=== PATIENT | female | born 1995 | race Caucasian/White ===

== ENCOUNTER 2023-08-25 19:54 | Inpatient (IN) | payer MEDICARE, SELFPAY ==
[2023-08-25 14:48] VITALS: BP 120/80
--- NOTE | 2023-08-25 16:07 | ED.GENMED ---
History of Present Illness
<EMILY Bates - Last Filed: 08/25/23 23:49>
General
Chief Complaint: Musculo-Skeletal Complaint
Source: patient
Exam Limitations: none
Time Seen by Provider: 08/25/23 15:07
Nursing documentation reviewed up to this point in time: agreed with
Travel History
Have you had any contact with someone who has COVID-19?: No
Do you have any symptoms of coronavirus? Fever > 100 degrees, chills, cough, shortness of breath, sore throat, loss of taste or smell, muscle aches, or headache?: No
History of Present Illness
History of Present Illness:
28-year-old female brought to the ER by mom for evaluation. Two days ago patient started to complain of pain to left groin area and had some discomfort yesterday but today mom noticed significant swelling to her left lower leg and now reports the
swelling is throughout the entire leg. Patient still complains of pain. She denies any fever chills or illness. Denies any injury. No prior DVT PE. She is on and has been on oral contraceptives for 10 years but does not smoke.
Past History
<EMILY Bates - Last Filed: 08/25/23 23:49>
Past History
ED Past Medical History: GERD, Hypothyroidism, Other (Down syndrome) and Other (Seasonal allergies)
ED Past Surgical History: Cholecystectomy and Other (Tear duct)
Social History
Tobacco: Non-smoker
Alcohol: None
Drug: None
Personal: Single
Living: with family
Employment: Student
Family History
Family History: Other (Noncontributory)
Review of Systems
<EMILY Bates - Last Filed: 08/25/23 23:49>
Review of Systems
Allergies reviewed?: Yes
All Other Systems: ROS reviewed and negative except as documented in HPI and ROS
Constitutional: Reports no symptoms; Denies fever, fatigue or chills
Respiratory: Reports no symptoms; Denies trouble breathing
Musculoskeletal: Reports other ( left leg swelling pain )
Skin: Reports no symptoms
Neurological: Reports no symptoms
Hematologic/Lymphatic: Reports no symptoms
Psychiatric: Reports no symptoms
Phy Exam
<EMILY Bates - Last Filed: 08/25/23 23:49>
General Physical Exam
General Presentation: no apparent distress
General age: appears stated age
General Skin: warm and dry
General Habitus: normal
General Mental: alert
General Hydration: appears well hydrated
Cardiovascular Exam
Cardiovascular Exam: regular rate/rhythm, no murmur and normal peripheral pulses
Pulmonary Exam
Pulmonary Exam: lungs clear and no respiratory distress
Neurological Exam
Neurological Exam: alert and oriented x3
Bethanie Coma Scale
Eye Opening: Spontaneous
Verbal Response: Oriented
Motor Response: Obeys Commands
GCS Total Score: 15
Musculoskeletal Exam
Musculoskeletal Exam: other (Left leg with obvious significant swelling from thigh to foot mild erythema strong pulses)
Skin Exam
Skin Exam: normal color and cyanosis
Psychiatric Exam
Psychiatric Exam: normal mood/affect
Course
<EMILY Bates - Last Filed: 08/25/23 23:49>
Orders/Labs/Results
Orders:
Orders
08/25/23 15:57
IV Insert/Care/Rem.- Treatment PRN
Venous Doppler Lwr Ext Left [US Periph Venous LOWER Ext LT] Urgent
Comment:
Reason For Exam: swelling
08/25/23 16:37
Lactic Acid Urgent
08/25/23 16:38
Basic Metabolic Panel Urgent
Complete Blood Count/With Diff Urgent
Blood Culture Routine
VILMA Source: Blood/Venous
Specimen Description:
08/25/23 18:46
Heparin 7,300 units IV NOW STA
Nursing to Place Non Medication Order As Directed
Physician Order: PTT 6 hours after initial start of Heparin infusion
Above order entered?: Yes
08/25/23 18:49
Acetaminophen [Tylenol] 650 mg PO NOW STA
08/25/23 19:00
Heparin 56937 Units/250 ml 25,000 units in 250 ml IV PER PROTOCOL
Weight to be used for heparin protocol in kilograms (kg):: 91.5
Protocol:: DVT/PE
PTT Goal Range to be used:: PTT 73 to 111 seconds
Order type:: Initial
INITIAL Infusion Dose (UNITS/KG/hr) & then follow protocol:: 18 units/kg/hr
Infusion Dose in UNITS/hr & then follow protocol (UNITS/hr):: 1,600
INFUSION RATE in mL/hr & then follow protocol (mL/hr):: 16
For DVT/PE algorithm, re-bolus for low PTT?: Yes
PTT less than or equal to 64 seconds:: Re-bolus 80 units/kg (max 10,000units). Increase by 400 units/hr
(+ 4mL/hr)
PTT 64.1 to 72.9 seconds:: Re-bolus 40 units/kg (max 5,000 units). Increase by 200 units/hr
(+ 2mL/hr)
PTT 73 to 111 seconds:: Target Range. No change in rate.
PTT 111.1 to 130.9 seconds:: Decrease rate by 200 units/hr (- 2 mL/hr)
PTT 131 to 199.9 seconds:: HOLD for 1 hr. Then decrease by 300 units/hr (- 3mL/hr)
PTT greater than or equal to 200 seconds:: HOLD for 2 hrs & Notify Provider. Then decrease by 400 units/hr
(- 4mL/hr)
Lab follow-up:: Each change, PTT q6h until 2 consecutive are therapeutic. Then
PTT daily.
08/25/23 19:04
Heparin 3,700 units IV PRN PRN
Heparin 7,300 units IV PRN PRN
08/25/23 19:42
Admit/Transfer Patient As Directed
Co-Sign Provider:
Level of Care: Inpatient admission
Assign to:: Telemetry
Physician / Group: Hieu
Diagnosis: LLE DVT
Reason for Telemetry: Arrhythmia
Date to Stop Telemetry: 08/28/23
Time to Stop Telemetry: 11:00
Reason for Hospitalization: LLE DVT
Expected length of stay greater than two midnights?: Yes
ELOS- Estimated Length of Stay in days: 2
I certify the patient meets the requirements for IP care: Yes
08/25/23 19:43
Code Status As Directed
Resuscitation Status: Full Code
08/25/23 20:08
PTT Urgent
08/25/23 20:52
Acetaminophen [Tylenol] 650 mg PO Q4HPRN PRN
Morphine Sulfate 2 mg IV Q4HPRN PRN
Tramadol HCl [Ultram] 50 mg PO Q6HPRN PRN
08/25/23 20:52
Vascular Surgery Consult Routine
Consulting Provider: Giuseppe Randhawa III
Was physician already notified: Yes
Reason for consult: Extensive LLE DVT
Heparin Protocol- PTT Orders As Directed
PTT per Heparin protocol: -Obtain CBC and baseline PTT - if not already collected.
-Obtain PTT 6 hours from start of infusion. Then, every 6 hours until 2 consecutive
PTT's are therapeutic. Then, PTT Daily.
-With each rate change, obtain PTT every 6 hours until 2 consecutive PTT's are
therapeutic. Then, PTT Daily.
Activity As Directed
Activity Level: Ambulate
With Assistance
I/O [Intake/ Output] As Directed
Frequency: Per unit guidelines
Notify MD As Directed
Notify physician if: PTT is greater than or equal to 200.
Vital Signs As Directed
Frequency: Per unit guidelines
Weight As Directed
Frequency: Daily
Oxygen Therapy [O2 Therapy] [RESP] Routine
Titrate/Wean O2 to maintain O2 sat greater than (%): 94
Ot Eval And Treat Routine
PT Consult [Pt Eval And Treat] Routine
Activity Level: Ambulate
With Assistance
08/26/23 01:15
Prothrombin Time Urgent
08/26/23 06:00
Basic Metabolic Panel IN AM
Levothyroxine [Synthroid] 112 mcg PO DAILY @ 0600
08/26/23 08:00
Ketotifen Fumarate [Zaditor] See Dose Instructions BOTH EYES DAILY
Pantoprazole [Protonix] 40 mg PO DAILY
Polyethylene Glycol Powder [Miralax] 17 grams PO DAILY
08/27/23 06:00
Complete Blood Count/No Diff Q2D
Comment: notify provider: Platelet count < 130,000 or decrease by 50% from baseline
08/28/23 11:00
DC Protocol for Telemetry ONCE
08/29/23 06:00
Complete Blood Count/No Diff Q2D
Comment: notify provider: Platelet count < 130,000 or decrease by 50% from baseline
08/31/23 06:00
Complete Blood Count/No Diff Q2D
Comment: notify provider: Platelet count < 130,000 or decrease by 50% from baseline
09/02/23 06:00
Complete Blood Count/No Diff Q2D
Comment: notify provider: Platelet count < 130,000 or decrease by 50% from baseline
09/04/23 06:00
Complete Blood Count/No Diff Q2D
Comment: notify provider: Platelet count < 130,000 or decrease by 50% from baseline
09/06/23 06:00
Complete Blood Count/No Diff Q2D
Comment: notify provider: Platelet count < 130,000 or decrease by 50% from baseline
09/08/23 06:00
Complete Blood Count/No Diff Q2D
Comment: notify provider: Platelet count < 130,000 or decrease by 50% from baseline
09/10/23 06:00
Complete Blood Count/No Diff Q2D
Comment: notify provider: Platelet count < 130,000 or decrease by 50% from baseline
Abnormal Lab Results
08/25/23
16:38
RBC 4.16 L 10^6/uL
(4.20-5.40)
MCH 33.2 H pg
(27.0-31.0)
Abs Immat Gran (auto) 0.1 H 10^3/uL
(0-0.05)
Absolute Neuts (auto) 8.7 H 10^3/uL
(1.4-6.5)
Immature Gran % 0.6 H %
(0-0.5)
Neutrophils % 81.5 H %
(42.2-75.2)
Lymphocytes % 11.2 L %
(20.5-51.1)
Carbon Dioxide 21 L mmol/L
(22-30)
BUN 21 H mg/dl
(7-17)
Glucose 114 H mg/dl
(70-99)
08/25/23 16:38
08/25/23 16:38
Vital Signs
Initial and Last Documented VS:
Initial Vital Signs
Temp Pulse Resp BP Pulse Ox
98.1 F 111 18 120/80 100
08/25/23 14:48 08/25/23 14:48 08/25/23 14:48 08/25/23 14:48 08/25/23 14:48
Last Documented Vital Signs
Temp Pulse Resp BP Pulse Ox
99.6 F 111 18 129/93 96
08/25/23 21:26 08/25/23 14:48 08/25/23 14:48 08/25/23 22:00 08/25/23 22:15
Stationary Engineer consulted with Physician
Stationary Engineer consulted with physician?: Yes
Name of Physician Consulted: Kiara
<Jesus López, DO - Last Filed: 08/25/23 17:13>
Orders/Labs/Results
Orders:
Orders
08/25/23 15:57
IV Insert/Care/Rem.- Treatment PRN
Venous Doppler Lwr Ext Left [US Periph Venous LOWER Ext LT] Urgent
Comment:
Reason For Exam: swelling
08/25/23 16:37
Lactic Acid Urgent
08/25/23 16:38
Basic Metabolic Panel Urgent
Complete Blood Count/With Diff Urgent
Blood Culture Routine
VILMA Source: Blood/Venous
Specimen Description:
08/25/23 18:46
Heparin 7,300 units IV NOW STA
Nursing to Place Non Medication Order As Directed
Physician Order: PTT 6 hours after initial start of Heparin infusion
Above order entered?: Yes
08/25/23 18:49
Acetaminophen [Tylenol] 650 mg PO NOW STA
08/25/23 19:00
Heparin 99872 Units/250 ml 25,000 units in 250 ml IV PER PROTOCOL
Weight to be used for heparin protocol in kilograms (kg):: 91.5
Protocol:: DVT/PE
PTT Goal Range to be used:: PTT 73 to 111 seconds
Order type:: Initial
INITIAL Infusion Dose (UNITS/KG/hr) & then follow protocol:: 18 units/kg/hr
Infusion Dose in UNITS/hr & then follow protocol (UNITS/hr):: 1,600
INFUSION RATE in mL/hr & then follow protocol (mL/hr):: 16
For DVT/PE algorithm, re-bolus for low PTT?: Yes
PTT less than or equal to 64 seconds:: Re-bolus 80 units/kg (max 10,000units). Increase by 400 units/hr
(+ 4mL/hr)
PTT 64.1 to 72.9 seconds:: Re-bolus 40 units/kg (max 5,000 units). Increase by 200 units/hr
(+ 2mL/hr)
PTT 73 to 111 seconds:: Target Range. No change in rate.
PTT 111.1 to 130.9 seconds:: Decrease rate by 200 units/hr (- 2 mL/hr)
PTT 131 to 199.9 seconds:: HOLD for 1 hr. Then decrease by 300 units/hr (- 3mL/hr)
PTT greater than or equal to 200 seconds:: HOLD for 2 hrs & Notify Provider. Then decrease by 400 units/hr
(- 4mL/hr)
Lab follow-up:: Each change, PTT q6h until 2 consecutive are therapeutic. Then
PTT daily.
08/25/23 19:04
Heparin 3,700 units IV PRN PRN
Heparin 7,300 units IV PRN PRN
08/25/23 19:42
Admit/Transfer Patient As Directed
Co-Sign Provider:
Level of Care: Inpatient admission
Assign to:: Telemetry
Physician / Group: Hieu
Diagnosis: LLE DVT
Reason for Telemetry: Arrhythmia
Date to Stop Telemetry: 08/28/23
Time to Stop Telemetry: 11:00
Reason for Hospitalization: LLE DVT
Expected length of stay greater than two midnights?: Yes
ELOS- Estimated Length of Stay in days: 2
I certify the patient meets the requirements for IP care: Yes
08/25/23 19:43
Code Status As Directed
Resuscitation Status: Full Code
08/25/23 20:08
PTT Urgent
08/25/23 20:52
Acetaminophen [Tylenol] 650 mg PO Q4HPRN PRN
Morphine Sulfate 2 mg IV Q4HPRN PRN
Tramadol HCl [Ultram] 50 mg PO Q6HPRN PRN
08/25/23 20:52
Vascular Surgery Consult Routine
Consulting Provider: Giuseppe Randhawa III
Was physician already notified: Yes
Reason for consult: Extensive LLE DVT
Heparin Protocol- PTT Orders As Directed
PTT per Heparin protocol: -Obtain CBC and baseline PTT - if not already collected.
-Obtain PTT 6 hours from start of infusion. Then, every 6 hours until 2 consecutive
PTT's are therapeutic. Then, PTT Daily.
-With each rate change, obtain PTT every 6 hours until 2 consecutive PTT's are
therapeutic. Then, PTT Daily.
Activity As Directed
Activity Level: Ambulate
With Assistance
I/O [Intake/ Output] As Directed
Frequency: Per unit guidelines
Notify MD As Directed
Notify physician if: PTT is greater than or equal to 200.
Vital Signs As Directed
Frequency: Per unit guidelines
Weight As Directed
Frequency: Daily
Oxygen Therapy [O2 Therapy] [RESP] Routine
Titrate/Wean O2 to maintain O2 sat greater than (%): 94
Ot Eval And Treat Routine
PT Consult [Pt Eval And Treat] Routine
Activity Level: Ambulate
With Assistance
08/26/23 01:15
Prothrombin Time Urgent
08/26/23 06:00
Basic Metabolic Panel IN AM
Levothyroxine [Synthroid] 112 mcg PO DAILY @ 0600
08/26/23 08:00
Ketotifen Fumarate [Zaditor] See Dose Instructions BOTH EYES DAILY
Pantoprazole [Protonix] 40 mg PO DAILY
Polyethylene Glycol Powder [Miralax] 17 grams PO DAILY
08/27/23 06:00
Complete Blood Count/No Diff Q2D
Comment: notify provider: Platelet count < 130,000 or decrease by 50% from baseline
08/28/23 11:00
DC Protocol for Telemetry ONCE
08/29/23 06:00
Complete Blood Count/No Diff Q2D
Comment: notify provider: Platelet count < 130,000 or decrease by 50% from baseline
08/31/23 06:00
Complete Blood Count/No Diff Q2D
Comment: notify provider: Platelet count < 130,000 or decrease by 50% from baseline
09/02/23 06:00
Complete Blood Count/No Diff Q2D
Comment: notify provider: Platelet count < 130,000 or decrease by 50% from baseline
09/04/23 06:00
Complete Blood Count/No Diff Q2D
Comment: notify provider: Platelet count < 130,000 or decrease by 50% from baseline
09/06/23 06:00
Complete Blood Count/No Diff Q2D
Comment: notify provider: Platelet count < 130,000 or decrease by 50% from baseline
09/08/23 06:00
Complete Blood Count/No Diff Q2D
Comment: notify provider: Platelet count < 130,000 or decrease by 50% from baseline
09/10/23 06:00
Complete Blood Count/No Diff Q2D
Comment: notify provider: Platelet count < 130,000 or decrease by 50% from baseline
Abnormal Lab Results
08/25/23
16:38
RBC 4.16 L 10^6/uL
(4.20-5.40)
MCH 33.2 H pg
(27.0-31.0)
Abs Immat Gran (auto) 0.1 H 10^3/uL
(0-0.05)
Absolute Neuts (auto) 8.7 H 10^3/uL
(1.4-6.5)
Immature Gran % 0.6 H %
(0-0.5)
Neutrophils % 81.5 H %
(42.2-75.2)
Lymphocytes % 11.2 L %
(20.5-51.1)
Carbon Dioxide 21 L mmol/L
(22-30)
BUN 21 H mg/dl
(7-17)
Glucose 114 H mg/dl
(70-99)
08/25/23 16:38
08/25/23 16:38
Vital Signs
Initial and Last Documented VS:
Initial Vital Signs
Temp Pulse Resp BP Pulse Ox
98.1 F 111 18 120/80 100
08/25/23 14:48 08/25/23 14:48 08/25/23 14:48 08/25/23 14:48 08/25/23 14:48
Last Documented Vital Signs
Temp Pulse Resp BP Pulse Ox
99.6 F 111 18 129/93 96
08/25/23 21:26 08/25/23 14:48 08/25/23 14:48 08/25/23 22:00 08/25/23 22:15
<EMILY Bates - Last Filed: 08/25/23 23:49>
MDM/Problems Addressed
Differential Diagnosis Includes:
Not limited to DVT for cellulitis
MDM/Problems Addressed:
Patient is a 28-year-old female brought by mom for evaluation of left leg swelling. Patient started with pain to the left groin and mom noticed significant swelling to the left leg today which is gradually gotten worse. Patient with no prior
history of DVT PE no shortness of breath no recent risk factors.
Patient does have strong pulses there is significant swelling on exam with mild scattered erythema no fevers compartments soft. Ultrasound however shows occlusive thrombus extending continuously from the left common femoral vein through the left
popliteal also involvement of the left greater saphenous vein. Case reviewed with ED physician who evaluated patient and spoke with vascular surgery. Vascular surgery however at this time is in the OR. Will plan for admission IV heparin due to
significant extensive DVT. Patient nontachycardic not hypoxic no complaints of shortness of sob no clinical symptoms consistent with PE
<EMILY Bates - Last Filed: 08/25/23 23:49>
*Critical Care Note
Total Time (30-74mins, 75-104mins- exclusive of procedures): Not Applicable
ED Attending Note
<EMILY Bates - Last Filed: 08/25/23 23:49>
-
Portions of this chart may have been created with voice recognition software.� Occasional wrong word or��sound alike� substitutions may have occurred due to the inherent limitations of voice recognition software.
<Jesus López DO - Last Filed: 08/25/23 17:13>
ED Attending Note
Patient seen and examined by attending physician: Yes
I performed the substantive portion of visit, reviewed & personally made and approve the management plan that is documented in note by myself or HANH.: Yes
Discharge Plan
Departure
Patient Disposition: Admit
Date of Disposition: 08/25/23
Time of Disposition: 18:49
Admit to: Med/Surg
Presentation/result/management discussed w/ accepting MD/DO: Hospitalist
Patient with high blood pressure during this ER visit?: No
Condition: Fair
Covid-19: Not Applicable
Discharge Problem:
Acute deep vein thrombosis (DVT) of left lower extremity
Interventions
Interventions:
*Risk Screen - Suicide Last Done: 08/25/23 14:54
*Neglect/Abuse Screening Last Done: 08/25/23 14:54
ED- Fall Risk Assessment Last Done: 08/25/23 21:27
*ED COVID-19 Vaccine History Last Done: 08/25/23 14:54
*Nursing Disposition Last Done: 08/25/23 22:36
ED-Musculoskeletal Assessment Last Done: 08/25/23 15:54
Discharge Date and Time
Discharge Date/Time: 08/25/23 22:37
[2023-08-25 16:20] VITALS: BMI 45.3
[2023-08-25 16:46] LABS: % Basophils 0.6 % (0-2); % Eosinophils 2.1 % (0-6); % Immature Granulocytes 0.6 % (0-0.5); % Lymphocytes 11.2 % (20.5-51.1); % Neutrophils 81.5 % (42.2-75.2); Absolute Basophils 0.1 10^3/uL (0-0.2); Absolute Eosinophils 0.2 10^3/uL (0-0.7); Absolute Immature Granulocytes 0.1 10^3/uL (0-0.05); Absolute Lymphocytes 1.2 10^3/uL (1.2-3.4); Absolute Monocytes 0.4 10^3/uL (0.1-0.6); Absolute Neutrophils 8.7 10^3/uL (1.4-6.5); Hematocrit 39.8 % (37.0-47.0); Hemoglobin 13.8 g/dL (12.0-16.0); Mean Corp Hgb Conc. 34.7 g/dL (33.0-37.0); Mean Corpuscular Hgb 33.2 pg (27.0-31.0); Mean Corpuscular Volume 95.7 fL (81.0-99.0); Mean Platelet Volume 9.8 fL (7.4-10.4); Nucleated Red Blood Cells % 0 %; Platelet Count 171 10^3/uL (130-400); Red Blood Cell Count 4.16 10^6/uL (4.20-5.40); Red Cell Dist. Width 13.1 % (11.5-14.5); White Blood Cell Count 10.7 10^3/uL (4.8-10.8)
[2023-08-25 16:57] LABS: Lactic Acid 1.1 mmol/L (0.7-2.0)
[2023-08-25 17:08] LABS: Blood Urea Nitrogen 21 mg/dl (7-17); Calcium 8.7 mg/dl (8.4-10.2); Carbon Dioxide 21 mmol/L (22-30); Chloride 105 mmol/L (98-107); Estimated Creatinine Clearance 77 ml/min; Glucose 114 mg/dl (70-99); Sodium 136 mmol/L (135-145); eGFR > 60.00
[2023-08-25] MEDS: TYLENOL 650 MG PO (19:03)
[2023-08-25 19:07] VITALS: BP 107/75
[2023-08-25] MEDS: HEPARIN 7300 UNITS IV (19:11)
[2023-08-25] MEDS: HEPARIN 25000 UNITS/250 ML IV (19:12)
--- NOTE | 2023-08-25 19:48 | HPS.HSE ---
Addendum entered and electronically signed by Brooks Hagen DO 08/25/23 23:30:
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
Vascular Surgery consulted as previously noted.
Patient will likely benefit from eventual iliac vein stenting.
Original Note:
Family Physician
-
Family Physician: Hortencia Sparks MD
Chief Complaint
-
LLE Pain and Swelling
History of Present Illness
Patient is a 28y F with PMH significant for Down syndrome, hypothyroidism and morbid obesity who presents to ED complaining of LLE pain, swelling and redness. Patient notes that she has been very active lately. She works as a service bar cashier and is on
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 On Friday, patient felt some discomfort in the L groin area and thought that she must have pulled a muscle while performing. She
applied heat / ice and her mother massaged the area and her symptoms seemed to improve. She felt fairly well on Friday.
On Friday morning she woke with significant swelling and redness in the entire LLE. She reports pain throughout the entire leg - though mostly in the anterior thigh.
Patient denies any recent surgery. No recent travel. No prior history of DVT / PE.
No known family history of VTE, malignancy, etc.
Medical History
Past Medical History
Past Medical History: Reports Other
Additional Past Medical History:
Down Syndrome
Hypothyroidism
Morbid Obesity
Past Surgical History: Reports Other
Additional Past Surgical History:
Cholecystectomy
Bilateral Tear Duct Surgeries
Social History
Tobacco: Non-smoker
Alcohol: None
Drug: None
Family History
Family History: Not pertinent
Allergies / Home Medications
Allergies reflects when Allergies were last updated in [facility].
Home Medications with original date entered in [facility]
Allergy/Medication List:
Allergies
Allergy/AdvReac Type Severity Reaction Status Date / Time
lactase [From [employer]] Allergy Unknown Verified 08/25/23 14:53
CACIN Allergy Unknown Uncoded 06/28/18 04:24
Home Medications
clindamycin phosphate 1 % topical solution 1 applic topical HS 08/25/23
dicyclomine 10 mg capsule 20 mg PO TID PRN ibs cramping 08/25/23
fluticasone propionate 50 mcg/actuation nasal spray,suspension 1 spray intranasal DAILY 08/25/23
levonorgestrel 0.15 mg-ethinyl estradiol 30 mcg tablets,3 mos pack(91) 1 tab PO HS 08/25/23
levothyroxine 112 mcg tablet 112 mcg PO DAILY 08/25/23
loratadine-pseudoephedrine ER 10 mg-240 mg tablet,extended [id number] (AllerClear D-24hr) 1 tab PO DAILY 08/25/23
multivitamin 1 tab PO DAILY 08/25/23
olopatadine 0.2 % eye drops (Pataday Once Daily Relief) 1 drp BOTH EYES DAILY 08/25/23
omeprazole 20 mg capsule,delayed release 20 mg PO DAILY 08/25/23
polyethylene glycol 3350 17 gram oral powder packet (Miralax) 17 g PO DAILY 08/25/23
vitamin E 268 mg (400 unit) capsule 268 mg PO DAILY 08/25/23
Review of Systems
-
History Source: Patient
A 12 point ROS was completed and negative except as noted: Yes
Constitutional: Denies Fever or Chills
Respiratory: Denies Cough or Trouble Breathing
Cardiac: Denies Chest Pain or Palpitations
Abdomen/GI: Denies Abdominal Pain, Nausea, Vomiting or Diarrhea
: Denies Dysuria or Frequency
Musculoskeletal: Reports Muscle Pain and Edema
Neurological: Denies Dizzy or Headache
Psych: Denies Depression or Anxiety
Physical Exam
Vital Signs
Vital Signs
Temp Pulse Resp BP Pulse Ox
97.8 F 111 18 120/80 100
08/25/23 16:20 08/25/23 14:48 08/25/23 14:48 08/25/23 14:48 08/25/23 14:48
Physical Exam
General: Other (28y F in mild distress due to LLE pain.)
HEENT: Moist mucous membranes and PERRLA
Respiratory: Clear; No Wheezes, Rales or Rhonchi
Cardiac: S1/S2 and Regular Rhythm; No Murmur
GI: Soft, Non Tender, Non Distended and Normal Bowel Sounds
Musculoskeletal: Other (Extensive edema and erythema of the entire LLE with diffuse tenderness. No fluctuance. No increased warmth.)
Neuro: AO x 3 and Nonfocal/grossly intact
Laboratory Results
-
08/25/23 16:38
08/25/23 16:38
Laboratory Results
Lactic Acid 1.1 mmol/L (0.7-2.0) 08/25/23 16:37
Total Bilirubin Cancelled 08/25/23 16:38
AST Cancelled 08/25/23 16:38
ALT Cancelled 08/25/23 16:38
Alkaline Phosphatase Cancelled 08/25/23 16:38
Impression/Plan
-
A/P: Patient is a 28yF with PMH significant for Down syndrome and hypothyroidism who presents to ED for evaluation of significant LLE pain and swelling.
Extensive LLE DVT
- Admit for further evaluation and treatment.
- IV heparin started in the ED.
- Vascular Surgery evaluation for additional recommendations.
- Morbid obesity and OCP use. Non-smoker, no recent travel or surgeries.
- Supportive care / pain control.
Hypothyroidism
Down Syndrome
- Stable. Continue home T4 supplementation.
Morbid Obesity due to excess calories
- Affects all aspects of care including risk of VTE.
- Encourage healthy diet and increased activity with goal of weight loss.
DVT Prophylaxis: On IV Heparin
Code Status: Full
[2023-08-25 20:00] VITALS: BP 113/63
--- NOTE | 2023-08-25 20:27 | EDRN ---
Initial PT/INR sample that was sent by last shift was cancelled by the lab due to high result. Repeat sample was drawn and sent by this RN, admitting made aware as pt. had already received heparin bolus and gtt. had already been started.
[2023-08-25 20:56] LABS: APTT > 200 Sec (23.4-35.0)
--- NOTE | 2023-08-25 21:06 | EDRN ---
Repeat coag. studies result >200, admitting team aware, order for RN to hold heparin gtt. for 2 hours, then redraw PTT.
[2023-08-25] MEDS: ULTRAM 50 MG PO (21:37)
[2023-08-25 22:00] VITALS: BP 129/93
[2023-08-25 22:17] LABS: HCG, Serum Qualitative Screen Negative
[2023-08-25] MEDS: MORPHINE SULFATE 2 MG IV (22:22)
[2023-08-25 23:45] VITALS: BP 111/71
--- NOTE | 2023-08-25 23:45 | PTCARENOTE ---
Pt arrived via stretcher and pulled over to bed w/ family member at bedside. Pt is AAOx3, VSS, with 10/10 pain. RN notified MOTION STUDY ENGINEER- ordered morphine 2mg stat. Heparin gtt is on hold due to PTT results. Pt is resting comfortably w/ call yin within
reach.
[2023-08-26] VITALS (33 sets, daily range): BP systolic 95–133; BP diastolic 55–100; BMI 43.9; BMI 46.1
[2023-08-26] MEDS: NSS 1000 IV ×2 (00:35→16:22)
[2023-08-26] MEDS: MORPHINE SULFATE 2 MG IV ×2 (00:35→08:27)
[2023-08-26 00:55] LABS: INR 1.34; PT 16.4 Sec (11.4-14.6)
[2023-08-26] MEDS: HEPARIN 7300 UNITS IV (01:41)
[2023-08-26] MEDS: HEPARIN 25000 UNITS/250 ML IV (01:54)
[2023-08-26] MEDS: SYNTHROID 112 MCG PO (05:28)
[2023-08-26] MEDS: MIRALAX PO (08:11)
--- NOTE | 2023-08-26 08:16 | CON.VAS ---
Addendum entered and electronically signed by Giuseppe Randhawa III, MD 08/26/23 11:13:
This patient was seen and examined with EMILY Lacey. I agree with the history and physical exam as well as the assessment and plan. I have the following additions:
28-year-old female, Down syndrome
Mom at bedside
Active with dancing and has a job working several hours a day
Extensive iliofemoral and infrainguinal left lower extremity DVT
Symptoms in the left leg started acutely on Friday
On oral contraception
No other precipitating factors
No history of DVT/PE
No family history
Venous duplex and CT venogram images reviewed
On physical examination her left leg is edematous and firm but not tight compared to the right
There is reddish skin discoloration
Her foot is warm and pulses are palpable
My recommendation is for initiation of pharmacomechanical thrombolysis via a left popliteal vein approach. The technical aspects of this procedure were discussed with Kay and her mom in detail. The benefits and rationale for this approach were
discussed with both of them in detail. Operative risks were discussed with him in detail including but not limited to bleeding, , intracranial hemorrhage, access site vessel injury, infection, failure to clear thrombus, long-term swelling and
the need for additional procedures. The anticipated timing of the procedure and return to the operating room for lysis check was discussed with Kay and her mom as well.
Kay's mom wanted some additional time to discuss things with her daughter and her family members. Will return to finalize a surgical plan. Continue heparin drip. Keep patient n.p.o.
Signed:
Giuseppe Randhawa III, MD
[facility]
[phone] (zxsd)
Original Note:
Consultation
Consultation Request
Performing Provider: Sydnee
Reason for Consultation: Extensive DVT
Medical History
-
Chief Complaint: LLE Pain and Swelling
History of Present Illness:
28 yo female with PMH significant for Down syndrome, hypothyroidism and morbid obesity who was admitted through the ER for DVT workup. Patient notes she has been very active lately. 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 On Friday,
patient felt some discomfort in the L groin area and thought that she must have pulled a muscle. She felt fairly well on Friday. Friday morning she woke with significant swelling and redness in the entire LLE. She reports tightness throughout the
leg. Denies any recent surgery, stroke, blood thinning medications, or history of DVT/PE. Denies recent travel. No family history of blood clotting disorders.
Ultrasound: Occlusive thrombus extending contiguously from the left common femoral vein through the left popliteal vein. There is also involvement of the visualized proximal left greater saphenous vein. the left iliac vein is unable to be
visualized, and thrombus could extend into the pelvic veins.
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
Vascular Surgery consulted for this finding.
Patient seen at bedside this a.m. with Dr. Randhawa, patient's mother present. Patient's left lower extremity continues to be significantly red and swollen. We had an extensive discussion about thrombolysis versus medical management.
Past Medical History
Past Medical History: Hypothyroidism and Other (Down Syndrome, Morbid Obesity)
Past Surgical History: Cholecystectomy and Other (Bilateral Tear Duct Surgeries)
Social History
Tobacco: Non-Smoker
Alcohol: None
Drug: None
Living: With Family
Employment: Employed
Family History
Family History: Reviewed & Not Pertinent
Allergies / Home Medications
Allergy/AdvReac Type Severity Reaction Status Date / Time
lactase [From Dairy Aid] Allergy Unknown Verified 08/25/23 14:53
CACIN Allergy Unknown Uncoded 06/28/18 04:24
�Medication �Instructions �Recorded �Confirmed �Type
clindamycin phosphate 1 % topical 1 applic topical HS 08/25/23 08/25/23 History
solution
dicyclomine 10 mg capsule 20 mg PO TID PRN ibs cramping 08/25/23 08/25/23 History
fluticasone propionate 50 1 spray intranasal DAILY 08/25/23 08/25/23 History
mcg/actuation nasal
spray,suspension
levonorgestrel 0.15 mg-ethinyl 1 tab PO HS 08/25/23 08/25/23 History
estradiol 30 mcg tablets,3 mos
pack(91)
levothyroxine 112 mcg tablet 112 mcg PO DAILY 08/25/23 08/25/23 History
loratadine-pseudoephedrine ER 10 1 tab PO DAILY 08/25/23 08/25/23 History
mg-240 mg tablet,extended
[id number] (AllerClear D-24hr)
multivitamin 1 tab PO DAILY 08/25/23 08/25/23 History
olopatadine 0.2 % eye drops 1 drp BOTH EYES DAILY 08/25/23 08/25/23 History
(Pataday Once Daily Relief)
omeprazole 20 mg capsule,delayed 20 mg PO DAILY 08/25/23 08/25/23 History
release
polyethylene glycol 3350 17 gram 17 g PO DAILY 08/25/23 08/25/23 History
oral powder packet (Miralax)
vitamin E 268 mg (400 unit) capsule 268 mg PO DAILY 08/25/23 08/25/23 History
Review of Systems
-
History Source: Patient and Family
All other systems: Negative unless noted
Constitutional: Reports No Symptoms
EENT: Reports No Symptoms
Respiratory: Reports No Symptoms
Cardiac: Reports No Symptoms
Vascular: Denies Leg Pain / Claudication
Abdomen/GI: Reports No Symptoms
: Reports No Symptoms
Musculoskeletal: Reports Muscle Pain, Muscle Stiffness and Edema
Skin: Reports Other (Redness)
Neurological: Reports No Symptoms
Endocrine: Reports No Symptoms
Physical Exam
Vital Signs
Temp Pulse Resp BP Pulse Ox
97.8 F 96 18 126/78 96
08/26/23 07:52 08/26/23 07:52 08/26/23 07:52 08/26/23 07:52 08/26/23 07:52
Lab Results
08/25/23 16:38
Physical Exam
General: No Apparent Distress
HEENT: Normocephalic and Atraumatic
Respiratory: Non Labored Respirations
Cardiac: Negative JVD
GI: Soft and Non Tender
Musculoskeletal: No Clubbing, No Cyanosis and Edema (Left lower extremity)
Skin: Warm and Other (Redness throughout left lower extremity)
Neuro: Awake, Alert and Oriented
Psych: Calm
Assessment / Plan
-
28-year-old female with extensive DVT
Plan:
-Patient and family discussing thrombolysis versus medical management, we will follow-up with them shortly for decision
-If patient and family elect for thrombolysis we will take her to the OR today and she will stay overnight in the ICU
[2023-08-26 08:22] LABS: APTT 144.3 Sec (23.4-35.0)
[2023-08-26] MEDS: PROTONIX 40 MG PO (08:28)
[2023-08-26 09:25] LABS: Blood Urea Nitrogen 17 mg/dl (7-17); Calcium 8.1 mg/dl (8.4-10.2); Carbon Dioxide 22 mmol/L (22-30); Chloride 107 mmol/L (98-107); Estimated Creatinine Clearance 84 ml/min; Glucose 109 mg/dl (70-99); Potassium 3.9 mmol/L (3.5-5.1); Sodium 136 mmol/L (135-145); eGFR > 60.00
--- NOTE | 2023-08-26 11:25 | CM ---
CM met with Kay, her mother, and her aunt. Kay has Down Syndrome and leads an active life. 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 Kay loves to dance and has recently been in a couple
theater productions.
She lives in a 2 story home; bedroom and bathroom are on the second floor. Kay's mother provides transportation to/from her job and activities.
CM will follow to assist as needed with discharge planning.
Plan: Surgery anticipated today and probable transfer to ICU post-op.
[2023-08-26] MEDS: ZADITOR 1 DROP BOTH EYES (11:49)
--- NOTE | 2023-08-26 13:09 | W.PN.HOSP.TC ---
Today's Communication/Plan
-
monitor vitals
see plan
OR today by vascular
hematology consult
cw IV heparin
discussed with Mother at bedside
Assessment / Plan
Assessment / Plan
General: mild LLE pain
HEENT: Moist mucous membranes and PERRLA
Respiratory: Clear; No Wheezes, Rales or Rhonchi
Cardiac: S1/S2 and Regular Rhythm; No Murmur
GI: Soft, Non Tender, Non Distended and Normal Bowel Sounds
Musculoskeletal: Other (Extensive edema and erythema of the entire LLE with diffuse tenderness. No fluctuance. No increased warmth.)
Neuro: AO x 3 and Nonfocal/grossly intact
Extensive LLE DVT
- cw IV heparin
- Vascular Surgery following
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
Will eventually need iliac vein stenting
plan for OR 08/25 with vascular for thrombolysis
CT A/P also showed possible diffusion defect. CT pe consistent with PE. no right heart strain
consult hematology
Hypothyroidism
Down Syndrome
- Stable. Continue home T4 supplementation.
Morbid Obesity due to excess calories
- Affects all aspects of care including risk of VTE.
- Encourage healthy diet and increased activity with goal of weight loss.
DVT Prophylaxis: On IV Heparin
Code Status: Full
I spent a total of 53 minutes with the patient or on the floor. More than 50% of this time involved counseling and coordination of care.
Anticipated Discharge: > 48 hours
Subjective/Interval History
-
Date of Service: August 26, 2023
denies pain
Objective Data
-
Labs:
Laboratory Results
08/26/23 08/26/23 08/26/23
00:27 07:50 15:00
APTT 35.0 144.3 H Pending
Sodium 136
Potassium 3.9
Chloride 107
Carbon Dioxide 22
BUN 17
Creatinine 0.9
Glucose 109 H
Calcium 8.1 L
Vital Signs:
Vital Signs
Temp Pulse Resp BP Pulse Ox
97.9 F 99 18 102/63 96
08/26/23 11:25 08/26/23 11:25 08/26/23 11:25 08/26/23 11:25 08/26/23 11:25
I&O
08/25/23 08/26/23 08/27/23
06:59 06:59 06:59
Intake Total 0 / 0
Balance 0 / 0
--- NOTE | 2023-08-26 14:07 | W.SUR.PREOP ---
Pre-Operative Surgical Note
-
I have examined this patient prior to the performance of the scheduled procedure.
The patient's condition is unchanged from the time of the current History and
Physical and the patient is able to undergo the scheduled procedure.
--- NOTE | 2023-08-26 15:30 | W.IMMPOSTOP ---
Surgical Immed Post Op Note
-
Primary Surgeon: Dr. Giuseppe Randhawa III, MD
Assisting Surgeon: Dr. Matthias Sanabria MD, PhD (PGY-1)
Pre-op Diagnosis: Acute DVT of the left lower extremity
Post-op Diagnosis: Acute DVT of the left lower extremity
Procedure Performed: Diagnostic venogram, catheter directed TPA infusion
Anesthesia Type: General
Specimen / Cultures: None
Estimated Blood Loss: Minimal
Complications: None
Operative Findings: The patient was brought to the OR. Following induction and intubation, the patient was placed in the prone position. The popliteal fossa of the left lower extremity was prepped and draped in sterile fashion. Ultrasound guidance
was used to identify the small saphenous vein. Micropuncture kit was used to access the small saphenous vein. A 5-japanese sheath was advanced over a bizk.itson wire. A catheter was advanced over a glidewire to gain access to the inferior vena cava.
Diagnostic venogram showed extensive iliofemoral venous disease. A small catheter was placed into the inferior vena [id number] system and TPA was started. After 10minutes of TPA, diagnostic venogram showed improved patency of the venous
system. Nylon was used to secure the sheath and catheter. The patient was extubated and transferred to the intensive care unit in stable condition.
--- NOTE | 2023-08-26 15:50 | CON.INTV ---
Consultation
Consultation Request
Date/Time Consultation Requested: 08/26/23
Date/Time Consultation Performed: 08/26/23
Performing Provider: Talon
Reason for Consultation: ICU
Medical History
-
History of Present Illness:
Patient is a 28 year old F with PMH significant for Down syndrome, hypothyroidism and morbid obesity who presents to ED complaining of LLE pain, swelling and redness. She reports pain throughout the entire leg - though mostly in the anterior
thigh. Patient denies any recent surgery. No recent travel. No prior history of DVT / PE. No known family history of VTE, malignancy, etc.
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
Vascular Surgery consulted obtained. She underwent lysis 08/26/23 and transferred to ICU postoperatively for further management.
Past Medical History
Past Medical History: Other (see list below)
Social History
Tobacco: Non-smoker
Alcohol: None
Drug: None
Family History
Family History: Reviewed & Not Pertinent
Allergies / Home Medications
Allergies
Allergy/AdvReac Type Severity Reaction Status Date / Time
lactase [From Dairy Aid] Allergy Unknown Verified 08/25/23 14:53
CACIN Allergy Unknown Uncoded 06/28/18 04:24
Home Medications
�Medication �Instructions �Recorded �Confirmed �Last Taken �Type
clindamycin phosphate 1 % topical 1 applic topical HS Skin Issues 08/25/23 08/25/23 08/24/23 History
solution
dicyclomine 10 mg capsule 20 mg PO TID PRN ibs cramping 08/25/23 08/25/23 Unknown History
fluticasone propionate 50 1 spray intranasal DAILY Allergies 08/25/23 08/25/23 08/25/23 History
mcg/actuation nasal
spray,suspension
levonorgestrel 0.15 mg-ethinyl 1 tab PO HS Hormonal Agent 08/25/23 08/25/23 08/24/23 History
estradiol 30 mcg tablets,3 mos
pack(91)
levothyroxine 112 mcg tablet 112 mcg PO DAILY Thyroid 08/25/23 08/25/23 08/25/23 History
loratadine-pseudoephedrine ER 10 1 tab PO DAILY Allergies 08/25/23 08/25/23 08/25/23 History
mg-240 mg tablet,extended
[id number] (Navneetar D-24hr)
multivitamin 1 tab PO DAILY Supplement 08/25/23 08/25/23 08/25/23 History
olopatadine 0.2 % eye drops 1 drp BOTH EYES DAILY Allergies 08/25/23 08/25/23 08/25/23 History
(Pataday Once Daily Relief)
omeprazole 20 mg capsule,delayed 20 mg PO DAILY Gastrointestinal 08/25/23 08/25/23 08/25/23 History
release Issue
polyethylene glycol 3350 17 gram 17 g PO DAILY Constipation 08/25/23 08/25/23 08/25/23 History
oral powder packet (Miralax)
vitamin E 268 mg (400 unit) capsule 268 mg PO DAILY Supplement 08/25/23 08/25/23 08/25/23 History
Review of Systems
-
History Source: Patient
All other systems: Negative unless noted
Vitals / Labs / Diagnostic Testing
Vital Signs
Temp Pulse Resp BP Pulse Ox
97.9 F 101 14 109/64 92
08/26/23 11:25 08/26/23 13:38 08/26/23 13:38 08/26/23 13:38 08/26/23 13:38
Lab Data
08/26/23 07:50
Laboratory Results
08/25/23 08/25/23 08/26/23
19:04 20:08 00:15
PT Cancelled
INR Cancelled
APTT Cancelled > 200 H* Cancelled
08/26/23 08/26/23
00:27 07:50
PT 16.4 H
INR 1.34
APTT 35.0 144.3 H
Diagnostic Testing:
Physical Exam
-
HEENT: Normocephalic, Anicteric and Moist Mucous Membranes
Cardiovascular: S1/S2 and Regular Rhythm
Respiratory: Clear and Non-Labored Respirations
GI: Soft, Non Distended and Non Tender
Neurology: Awake, Alert, Oriented, AO x 3 and No Motor Deficits
Skin: Warm, Dry and Good Color
General: Comfortable and Other (NAD)
Assessment
-
Patient is a 28 year old F with PMH significant for Down syndrome, hypothyroidism and morbid obesity who presents to ED complaining of LLE pain, swelling and redness. CT A/P venogram completed and shows iliac vein compression by overlying iliac
artery - consistent with suspected May-Thurner syndrome. She underwent lysis 08/26/23 and transferred to ICU postoperatively for further management.
Extensive iliofemoral and infrainguinal left lower extremity DVT s/p lysis by vasc 08/26/23
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
Conditions present RESEARCH PROFESSOR
Down syndrome
Menorrhagia with irregular cycle on OCPS
Morbid obesity BMI 43
Hypothyroidism
IBS
Seasonal allergies
Plan
Patient is s/p lysis by vascular surgery service, POD #0
Continue observation following procedure
Follow neurovascular checks per protocol
Maintained on infusion, heparin IV
Follow BP monitoring and parameters as set by primary team
Cardiac history noted--none
Monitor on telemetry
Pain control per protocol
RASS goal 0
No prior history of pulmonary disease, LEIDY may be seen in Downs pts
Extubated well
CXR reviewed indicating no acute disease/overall low lung volumes
No prior PFTs for review
Encouraged IS
Diet advancement per protocol
Aspiration precautions
GI prophylaxis if indicated for stress ulcer prevention in the critically ill
Creat at baseline, follow UO
Critical I/Os
Void trials
Replete electrolytes as needed
No signs/symptoms suspicious for infectious etiology at this time
She is on periop abx
Follow temperatures/CBC
Hb and platelets postoperatively stable, repeat levels pending
DVT prophylaxis recommended if not contraindicated based on procedural history -- heparin SQ and mechanical SCDs
Encouraged OOB/PT/OT/ambulation once cleared by surgical team
We will follow
Diagnostic Data
Chest X-Ray: 06/28/18- Mild right-sided subsegmental atelectasis versus thickening of the minor fissure.
CT Scan: CTA 08/26/23- 1. Positive for peripheral pulmonary emboli bilaterally. No evidence of right heart strain.
2. Mild bibasilar subsegmental atelectasis, otherwise clear lungs.
AP - There is expansile deep venous thrombosis extending contiguously from the proximal left femoral vein through the left common iliac vein. Compression of the superior aspect of the left common iliac vein between the right common iliac artery in
the anterior margin of the spine, findings suggesting May Thurner syndrome. Although a soft finding, suggestion of a filling defect within a left lower lobe pulmonary artery. If diagnosis of pulmonary embolism would change clinical management, a CT
angiography of the chest could be performed. Left pelvic kidney is present, located anterior to the left psoas muscle. Status post cholecystectomy with no evidence for biliary ductal dilation
LE Duplex- IMPRESSION: Occlusive thrombus extending contiguously from the left common femoral vein through the left popliteal vein. There is also involvement of the visualized proximal left greater saphenous vein. Of note, the left iliac vein is
unable to be visualized, and thrombus could extend into the pelvic veins.
Echo:
PFT's:
Reports and relevant images were personally reviewed.
-----
Critical care time 50 mins -- this includes review of history, physical exam, medications, hemodynamic/ventilator parameters, laboratory data, imaging and discussion with house staff, pharmacy, respiratory therapy, delineator, and nursing.
[2023-08-26] MEDS: ANCEF IV (16:00)
[2023-08-26] MEDS: CATHFLO/ACTIVASE 16 MG INF CATH ×3 (16:00→22:54)
[2023-08-26] MEDS: NSS 1000 INF CATH (16:00)
[2023-08-26] MEDS: CATHFLO/ACTIVASE 16 ML INF CATH ×3 (16:00→22:54)
[2023-08-26] MEDS: HEPARIN 25000 UNITS/250 ML VEN SHEATH (16:04)
--- NOTE | 2023-08-26 16:25 | OR.RPT ---
Operative Report
Operative Report
Date of Operation: 08/26/2023
Pre Op Diagnosis: Extensive DVT involving the left iliac venous system, left common femoral vein, left femoral vein and left popliteal vein.
Post Op Diagnosis: Extensive DVT involving the left iliac venous system, left common femoral vein, left femoral vein and left popliteal vein.
Procedure:
1.) Left lower extremity venogram
2.) Left ilio-cavogram
3.) Placement of Cragg Mikki lysis catheter and initiation of venous thrombolysis (5 Fr, 50 cm infusion length)
4.) Ultrasound-guided percutaneous access to the left short saphenous vein
Surgeon: Giuseppe Randhawa III, MD
Cellar Hand: Matthias Sanabria MD PhD, PGY1
Anesthesia: General
Complications: None
Estimated Blood Loss: Less than 20 cc
History and Indications for Procedure: 28-year-old female with extensive DVT involving the left iliac venous system, left common femoral vein, left femoral vein and left popliteal vein.
Procedure in Detail: Kay Pickens was correctly identified and intubated on the hospital bed. After adequate induction of anesthesia she was carefully flipped prone on the hybrid operating table. All pressure points were closely inspected and
padded with the assistance of nursing and anesthesia. The left popliteal fossa was prepped and draped in the usual sterile fashion. A timeout procedure was performed with the nursing and anesthesia staff confirming the patient's identity as well
as the nature and laterality of the procedure.
Under ultrasound guidance I identified the thrombosed popliteal vein in the left popliteal fossa. I also identified the short saphenous vein in the proximal calf which was patent and compressible. Under direct ultrasound visualization we accessed
the short saphenous vein in the proximal calf with a micropuncture needle. We then upsized to a 5 Azerbaijani sheath over a Bentson wire. Using a glide catheter and a Glidewire we then easily navigated through the deep venous system to the pelvis. The
wire and catheter were advanced into the inferior vena cava. An ileal venacavogram was performed which clearly demonstrated the patent IVC and confluence of the iliac veins. The iliac vein confluence was marked on the screen relative to the
vertebral body. Over a Bentson wire I then upsized to a 6 Azerbaijani 23 cm sheath. A 5 Azerbaijani 50 cm infusion length [place] lysis catheter was then positioned in the desired location using the proximal and distal radiopaque markers. 10 mg of
tPA was injected through the lysis catheter. A venogram was performed through the lysis catheter approximately 10 minutes following tPA injection confirming satisfactory position of the catheter. The lysis catheter was secured in place at the
sheath exit site. The sheath was secured in place at the skin puncture site with a nylon suture. The sheath and catheter were secured to the skin with adhesive dressings. The heparin drip was connected to the sideport of the 6 Fr sheath and an
infusion was started in the operating room at 500 units an hour. This was clearly labeled. The tPA infusion was started through the lysis catheter in the operating room at 1 mg an hour and the catheter was clearly labeled as such.
Following this the patient was flipped back over to the supine position on the hospital bed. The patient was successfully extubated by the anesthesia team. The patient tolerated the procedure well was taken to the intensive care unit in stable
condition.
Attestation: I was present and responsible for the entire procedure
Signed: Giuseppe Randhawa III, MD
[facility] Surgery
[phone] (cell)
--- NOTE | 2023-08-26 16:30 | PTCARENOTE ---
Received pt. from electrical laboratory technician into [id number] @ 1600 s/p LLE venous lysis catheter placement w thrombolytics-see MAR. Neuro/neurovascular/site checks completed per order- see flow sheet. Pt. and mom updated on plan care. Instructed on how to report
care concerns. Call yin in reach.
[2023-08-26 17:05] LABS: Hematocrit 37.2 % (37.0-47.0); Hemoglobin 13.2 g/dL (12.0-16.0); Platelet Count 176 10^3/uL (130-400)
[2023-08-26 17:08] LABS: Magnesium 2.1 mg/dl (1.6-2.3)
[2023-08-26 17:15] LABS: INR 1.46; PT 17.5 Sec (11.4-14.6)
[2023-08-26 17:16] LABS: APTT 37.2 Sec (23.4-35.0); APTT 37.4 Sec (23.4-35.0); Fibrinogen 386 MG/DL (199-459)
--- NOTE | 2023-08-26 20:00 | PTCARENOTE ---
rec`d pt at 1900, pt AAOx3. pt pleasant. neuro check and post cath checks continued. alteplase and heparin continued. LLE warm, pink. dressing with bloody drainage. dressing intact. ST on monitor. 20g left and right AC Ivs. Hr low 100s. 96% RA.
round obese belly. Pt requested miralax since its apart of pts home routine. ruelas in for I&Os. call yin in reach, pt`s mom and brother at bedside. safe environment maintained.
[2023-08-26] MEDS: MIRALAX 17 GRAMS PO (20:35)
[2023-08-26] MEDS: ANCEF 5 IV (21:15)
[2023-08-26 21:54] LABS: Hematocrit 38.3 % (37.0-47.0); Hemoglobin 13.5 g/dL (12.0-16.0); Platelet Count 176 10^3/uL (130-400)
[2023-08-26 22:04] LABS: INR 1.61; PT 18.9 Sec (11.4-14.6)
[2023-08-26 22:05] LABS: APTT 43.4 Sec (23.4-35.0); Fibrinogen 208 MG/DL (199-459)
[2023-08-27] VITALS (37 sets, daily range): BP systolic 98–140; BP diastolic 58–105; BMI 45.8
[2023-08-27] MEDS: MYLICON 80 MG PO ×2 (00:21→18:28)
[2023-08-27] MEDS: CATHFLO/ACTIVASE 16 ML INF CATH ×2 (02:53→07:24)
[2023-08-27] MEDS: CATHFLO/ACTIVASE 16 MG INF CATH ×2 (02:53→07:24)
[2023-08-27 04:07] LABS: % Basophils 0.1 % (0-2); % Immature Granulocytes 0.7 % (0-0.5); % Lymphocytes 7.6 % (20.5-51.1); % Monocytes 1.8 % (1.7-9.3); % Neutrophils 89.8 % (42.2-75.2); Absolute Immature Granulocytes 0.1 10^3/uL (0-0.05); Absolute Lymphocytes 0.8 10^3/uL (1.2-3.4); Absolute Monocytes 0.2 10^3/uL (0.1-0.6); Absolute Neutrophils 9.2 10^3/uL (1.4-6.5); Hematocrit 35.7 % (37.0-47.0); Hemoglobin 12.3 g/dL (12.0-16.0); Mean Corp Hgb Conc. 34.5 g/dL (33.0-37.0); Mean Corpuscular Hgb 32.5 pg (27.0-31.0); Mean Corpuscular Volume 94.4 fL (81.0-99.0); Mean Platelet Volume 9.4 fL (7.4-10.4); Nucleated Red Blood Cells % 0 %; Platelet Count 153 10^3/uL (130-400); Red Blood Cell Count 3.78 10^6/uL (4.20-5.40); Red Cell Dist. Width 12.4 % (11.5-14.5); White Blood Cell Count 10.3 10^3/uL (4.8-10.8)
--- NOTE | 2023-08-27 04:07 | PTCARENOTE ---
pt reassessed. no changes in pt assessment. call yin in reach
[2023-08-27 04:17] LABS: INR 1.85; PT 21.2 Sec (11.4-14.6)
[2023-08-27 04:18] LABS: APTT 51.4 Sec (23.4-35.0)
[2023-08-27 04:24] LABS: Fibrinogen 100 MG/DL (199-459)
[2023-08-27 04:36] LABS: ALT (SGPT) 15 U/L (0-35); AST (SGOT) 25 U/L (14-36); Albumin 2.9 g/dl (3.5-5.0); Alkaline Phosphatase 81 U/L (38-126); Blood Urea Nitrogen 11 mg/dl (7-17); Calcium 7.7 mg/dl (8.4-10.2); Carbon Dioxide 19 mmol/L (22-30); Chloride 108 mmol/L (98-107); Direct Bilirubin 0.4 mg/dl (0.0-0.4); Estimated Creatinine Clearance 112 ml/min; Glucose 115 mg/dl (70-99); Potassium 4.3 mmol/L (3.5-5.1); Sodium 136 mmol/L (135-145); eGFR > 60.00
--- NOTE | 2023-08-27 05:54 | W.PN.UPDATE ---
Update Note
Progress Note Update
1248- Reviewed lab results, fibrinogen 100, results relayed to Dr. Sung, vascular surgeon. Dressing sites/wound sites gauze saturated and leaking blood slightly, no signs of bleeding anywhere else. Recommendations decrease TPA infusion from
4mls/hr to 2mls/hr.
[2023-08-27] MEDS: SYNTHROID PO (06:04)
[2023-08-27] MEDS: PROTONIX PO (07:23)
--- NOTE | 2023-08-27 07:25 | W.PN.INTV ---
Today's Communication / Plan
Recommendations
Remains on IV heparin IV, alteplase
Return to OR per [facility] team
Will follow up with continued postop care
Assessment
-
Patient is a 28 year old F with PMH significant for Down syndrome, hypothyroidism and morbid obesity who presents to ED complaining of LLE pain, swelling and redness. CT A/P venogram completed and shows iliac vein compression by overlying iliac
artery - consistent with suspected May-Thurner syndrome. She underwent lysis 08/26/23 and transferred to ICU postoperatively for further management.
Extensive iliofemoral and infrainguinal left lower extremity DVT s/p lysis by [facility] 08/26/23
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
Conditions present SHARE DAIRY FARMER
Down syndrome
Menorrhagia with irregular cycle on OCPS
Morbid obesity BMI 43
Hypothyroidism
IBS
Seasonal allergies
Plan
Patient is s/p lysis by vascular surgery service, POD #1
Return to OR today
Continue observation following procedure
Follow neurovascular checks per protocol
Maintained on infusion, heparin IV
Follow BP monitoring and parameters as set by primary team
Cardiac history noted--none
Monitor on telemetry
Pain control per protocol
RASS goal 0
No prior history of pulmonary disease, LEIDY may be seen in Downs pts
Extubated well
CXR reviewed indicating no acute disease/overall low lung volumes
No prior PFTs for review
Encouraged IS
Diet advancement per protocol
Aspiration precautions
GI prophylaxis if indicated for stress ulcer prevention in the critically ill
Creat at baseline, follow UO
Critical I/Os
Void trials
Replete electrolytes as needed
No signs/symptoms suspicious for infectious etiology at this time
She is on periop abx
Follow temperatures/CBC
Hb and platelets postoperatively stable, repeat levels pending
DVT prophylaxis recommended if not contraindicated based on procedural history -- heparin SQ and mechanical SCDs
Encouraged OOB/PT/OT/ambulation once cleared by surgical team
Diagnostic Data
Chest X-Ray: 06/28/18- Mild right-sided subsegmental atelectasis versus thickening of the minor fissure.
CT Scan: CTA 08/26/23- 1. Positive for peripheral pulmonary emboli bilaterally. No evidence of right heart strain.
2. Mild bibasilar subsegmental atelectasis, otherwise clear lungs.
AP - There is expansile deep venous thrombosis extending contiguously from the proximal left femoral vein through the left common iliac vein. Compression of the superior aspect of the left common iliac vein between the right common iliac artery in
the anterior margin of the spine, findings suggesting May Thurner syndrome. Although a soft finding, suggestion of a filling defect within a left lower lobe pulmonary artery. If diagnosis of pulmonary embolism would change clinical management, a CT
angiography of the chest could be performed. Left pelvic kidney is present, located anterior to the left psoas muscle. Status post cholecystectomy with no evidence for biliary ductal dilation
LE Duplex- IMPRESSION: Occlusive thrombus extending contiguously from the left common femoral vein through the left popliteal vein. There is also involvement of the visualized proximal left greater saphenous vein. Of note, the left iliac vein is
unable to be visualized, and thrombus could extend into the pelvic veins.
Echo:
PFT's:
Reports and relevant images were personally reviewed.
-----
Critical care time 32 mins -- this includes review of history, physical exam, medications, hemodynamic/ventilator parameters, laboratory data, imaging and discussion with house staff, pharmacy, respiratory therapy, outsole splicer, and nursing.
Subjective Dataa
Subjective Data
Date of Service:
Date of Service: August 27, 2023
Chief Complaint: Hot Dipper Follow Up
Subjective:
no acute events ON
returning to OR for further intervention
Objective Data
Data Reviewed
Vital Signs / I&O / Oxygen:
Vital Signs
Temp Pulse Resp BP Pulse Ox
98.2 F 96 25 109/75 91
08/26/23 20:00 08/27/23 06:00 08/27/23 06:00 08/27/23 06:00 08/27/23 06:00
Intake and Output
08/26/23 08/27/23 08/28/23
06:59 06:59 06:59
Intake Total 0 / 0 1725 / 1725
Output Total 1650 / 1650
Balance 0 / 0 75 / 75
SaO2 91
Physical Exam
General: Comfortable and Other (NAD)
HEENT: Normocephalic, Anicteric and Moist Mucous Membranes
Cardiovascular: S1-S2 and Regular Rhythm
Respiratory: Clear and Non-Labored Respirations
GI: Soft, Non Distended and Non Tender
Neurology: Awake, Alert, Oriented, AO x 3 and No Motor Deficits
Skin: Warm, Dry and Good Color
Labs/Micro/Reports
Lab Data
08/27/23 03:57
Laboratory Results
08/26/23 08/26/23 08/26/23
07:50 16:49 16:49
PT 17.5 H
INR 1.46
APTT 144.3 H 37.4 H 37.2 H
08/26/23 08/27/23
21:06 03:58
PT 18.9 H 21.2 H
INR 1.61 1.85
APTT 43.4 H 51.4 H
Microbiology
08/25/23 16:38 Blood/Venous Blood Culture - Preliminary
No Growth in 24 hours- Final report to follow
[2023-08-27] MEDS: NSS 1000 IV (07:26)
--- NOTE | 2023-08-27 07:54 | PTCARENOTE ---
Received pt @ change of shift. AAOx3, anx @ x's. Neurovascular/site checks continued per orders- LLE warm/pink; +1 edema; cap refill >2 sec; +doppler pulse. L popliteal venous catheter w TPA and heparin infusing- see MAR; dressing w bloody
drainage. Vascular, Dr. Fuller to bedside aware. Plan for pt to go back to vascular lab this AM. SR on monitor. SpO2 95% on RA. +BS, abd soft/round/obese. Cont BM; const. Randhawa catheter in place draining clear/yellow urine. #20 R AC w NSS @ 60mL/hr
infusing. Pt.'s mom @ bedside this AM. Pt. and mom updated on plan of care. Call yin remains w in reach.
--- NOTE | 2023-08-27 08:18 | W.PN.ANS.POP ---
Anesthesia Post Operative
- Anesthesia Post Op Note
Vital Signs Stable-See Nursing Note: Yes
Airway Patent: Yes
Adequate Pain Control: Yes
Change in Mental Status: No
Current Postoperative Nausea & Vomiting: No
Anesthesia Complications: No
General Anesthetic Recall: No
Unplanned Admission: No
Post Op Hydration Adequate: Yes
--- NOTE | 2023-08-27 08:18 | W.PN.UPDATE ---
Update Note
Progress Note Update
Seen and examined. Patient without specific complaints today. Notes her left leg may be a little bit better. Denies any headaches. No abdominal pain (just a little bit of queasiness). On exam she is awake and alert. Neurologically no focal
deficits. Abdomen is soft, nondistended, nontender. Left lower extremity thigh and calf are soft, edema relatively mild compared to other side. Puncture site flat with no signs of bleeding. Labs reviewed. Plan/lysis check today, AngioJet,
possible angioplasty/stent. Discussed extensively plan with patient and her mother. Discussed plan for lysis check, possible suction thrombectomy/mechanical aspiration, possible angioplasty/stent. Discussed stent risks including but not limited
to recurrent stenoses, occlusions, migration to heart. Patient and her mother mother understand all wish for us to proceed. tPA rate halved due to fibrinogen level.
[2023-08-27 09:22] LABS: Hematocrit 34.8 % (37.0-47.0); Hemoglobin 12.2 g/dL (12.0-16.0); Platelet Count 155 10^3/uL (130-400)
--- NOTE | 2023-08-27 09:25 | PTCARENOTE ---
pt transported to vascular OR via bed w optical laboratory mechanic RN x2. Awaiting pt. return back to unit. Pt.'s mom remains @ bedside.
[2023-08-27 09:31] LABS: INR 1.79; PT 20.9 Sec (11.4-14.6)
[2023-08-27 09:32] LABS: APTT 40.3 Sec (23.4-35.0)
[2023-08-27 09:45] LABS: Fibrinogen 79 MG/DL (199-459)
--- NOTE | 2023-08-27 11:05 | W.SUR.POST ---
Surgical Immediate Post Op
Note
Pre Op Diagnosis: DVT
Post Op Diagnosis: same
Procedure Performed: Lysis catheter removal, IVUS, ascending LLE venogram, central venogram, angiojet mechanical thrombectomy, left iliac vein wall stent with 18mm x 90mm
Primary Surgeon: Jonny
Anesthesia: general
Estimated Blood Loss: 50cc
Fluids: see anesthesia flow sheet
Drains/Shunts: none
Specimens/Cultures: none
Doppler/Duplex/Angio (Y/N): Y
Complications: none
Operative Findings: findings consistent with Faith Munroe's on IVUS
--- NOTE | 2023-08-27 12:26 | CM ---
CM following re: discharge planning.
Discussed in rounds, reviewed pt's chart, met with pt. Pt's mother and pt's brother at bedside. Per rounds meeting, pt to OR today.
Pt lives with mother in a 2SH, 2 steps to enter, has supportive brother. Pt has Down Syndrome, independent with functional ability and works at a school cafeteria.
D/C plan: home with anticipated no needs. mother to transport at discharge.
CM will follow with discharge plan updates as hospitalization progresses
[2023-08-27 12:29] LABS: Hematocrit 35.7 % (37.0-47.0); Hemoglobin 12.4 g/dL (12.0-16.0); Mean Corp Hgb Conc. 34.7 g/dL (33.0-37.0); Mean Corpuscular Hgb 33.2 pg (27.0-31.0); Mean Corpuscular Volume 95.7 fL (81.0-99.0); Mean Platelet Volume 10.1 fL (7.4-10.4); Platelet Count 148 10^3/uL (130-400); Red Blood Cell Count 3.73 10^6/uL (4.20-5.40); Red Cell Dist. Width 12.6 % (11.5-14.5); White Blood Cell Count 12.6 10^3/uL (4.8-10.8)
--- NOTE | 2023-08-27 12:29 | OR.RPT ---
Operative Report
Operative Report
PROCEDURE DATE: 08/27/2023
Preoperative diagnosis:
1. Acute extensive right lower extremity and iliofemoral DVT.
2. Ongoing catheter directed thrombolysis.
Postoperative diagnosis: Same
Procedure:
1. Ascending left lower extremity venogram and central venogram through existing sheath.
2. AngioJet mechanical thrombectomy of left common and external iliac veins with AngioJet Xelante catheter.
3. Balloon angioplasty of left common and external iliac veins with 8 mm angioplasty balloon.
4. IVUS (intravascular ultrasound) assessment left common/external iliac veins and IVC.
5. Placement of self expanding Wallstent 18 mm x 90 mm left common iliac vein into external iliac vein.
6. Balloon angioplasty of left external iliac vein with 16 mm and 12 mm angioplasty balloons.
7. Supervision and interpretation.
Surgeon: Jonny
Tape Cutting Machine Operator: None
Complications: None
Anesthesia: General
Fluoroscopy:
14.8 min
674 mGy
119.14 Gy.cm2
Indications for procedure:
Ongoing catheter directed thrombolysis for iliofemoral DVT. Patient brought back for lysis check. Of note her fibrinogen was 100 on the most recent check a few hours prior.
Description of procedure:
Patient was identified, brought to the operating room. She was anesthetized/intubated, and then placed on the table in the prone position. She was then prepped and draped in the standard surgical fashion. A standard preoperative timeout was
undertaken and everybody was in agreement with the plan.
The lytic catheter was exchanged over a Storq wire. Ascending left lower extremity venogram demonstrated patent popliteal, femoral, and common femoral veins now. The left external iliac vein appeared patent. There was slow filling into the common
iliac vein however and relatively slow filling into the IVC. Therefore I was concerned that there was still some residual thrombus here. Ideally I would favor placing a catheter back and continuing thrombolysis, however her fibrinogen had dropped
rather significantly. Therefore I elected to not continue catheter directed thrombolysis. I therefore then used an AngioJet Xelante catheter to perform mechanical thrombectomy (clot had already been infused with tPA overnight). I gave the patient
6000 units of intravenous heparin. I ran this through the common iliac and external iliac veins. Completion venogram still demonstrated slow flow through that segment. I therefore then performed balloon angioplasty with a long 8 mm angioplasty
balloon. Completion not demonstrated an enhanced flow channel. There is improvement now. And I could see the confluence of the bilateral iliac veins. However there appear to be some residual thrombus there. I therefore then again used the
AngioJet catheter and performed repeat AngioJet of the common iliac vein. Completion now demonstrated significant improvement with improved flow channel into the IVC as well. At this point I elected to perform IVUS to better assess. I had
exchanged now for an 11 [place] sheath. Now, I exchanged for my IVUS catheter. Complete intravascular assessment was performed that demonstrated patent popliteal/femoral and common femoral veins. External iliac vein was patent. The left common
iliac vein had severe stenosis with some residual eccentric thrombus noted throughout. But it is almost like the vein was scarred down. I could clearly see the point of compression with the right common iliac artery compressing the vein just
beyond the aortic bifurcation. Just beyond here into the IVC, there was luminal gain and no further stenosis or thrombus. Therefore I marked the screen where I wish the stent to extend to (had to extended into the IVC to get beyond the point of
compression). I then used a self-expanding Wallstent 18 mm x 90 mm (I sized based on preoperative CAT scan as well as IVUS measurement of the external iliac vein beyond the area of stenosis). Satisfied with the central deployment I then deployed
the stent to its completion. I then post angioplastied the stent with an 18 mm [place] balloon. As the 18 mm balloon was a little bit big for the external iliac vein, I used a 16 mm balloon. Completion venography now demonstrated widely patent
stent with good flow through the entire iliac system. However now there was mild to moderate stenosis in the external iliac vein that I did not appreciate on initial imaging. It was almost at the edge of the stent and extending almost towards the
common femoral vein. I looked with IVUS again and there was no significant thrombus burden here. It was almost as if the vein was somewhat spasmed. Or it may have been a somewhat smaller segment of vein between the stented common iliac vein and
the dilated common femoral vein. At this point I tried angioplasty and it initially with the larger 16 mm balloon. However it almost seemed worse after that. Therefore I then used a 12 mm smaller balloon with a slightly prolonged inflation.
Completion venogram now demonstrated improvement. There was never a waist in the balloon to suggest a recalcitrant stenosis. IVUS confirmed just a mild stenosis. There is no point of compression here that I could identify. Therefore, though I
debated stenting down to the common femoral vein, after deliberation I did not feel that a stent was warranted. At this point I was satisfied. The wires and catheters were all withdrawn. The sheath was withdrawn and manual pressure was applied to
the puncture site. Compressive dressings were also then applied. The patient tolerated the procedure well.
[2023-08-27] MEDS: ZADITOR BOTH EYES (12:31)
[2023-08-27] MEDS: MORPHINE SULFATE 2 MG IV ×2 (12:33→22:04)
[2023-08-27] MEDS: HEPARIN 25000 UNITS/250 ML IV (12:49)
--- NOTE | 2023-08-27 13:00 | PTCARENOTE ---
Received pt back from vascular OR @ approx 1200, post procedure LLE neurovascular checks initiated per protocol- see flow sheet. Pt.'s mom @ bedside, updated on procedure by Dr. Fuller. Heparin gtt initiated per orders- see flow sheet. Call yin in
reach.
[2023-08-27 13:23] LABS: APTT > 200.0 Sec (23.4-35.0)
--- NOTE | 2023-08-27 13:25 | CON.ONC ---
Documented by User: [email or web address] Aguirre 08/27/23 14:15
Impression
Impression
Provoked VTE 2/2 May Thurner and OCPs
Bilateral pulmonary emboli
Acute extensive left lower extremity and iliofemoral DVT s/p mechanical thrombectomy of left common and external iliac veins
May Thurner -Compression of the superior aspect of the left common iliac vein between the right common iliac artery in the anterior margin of the spine s/p stent
menorrhagia
Plan
Plan
on heparin gtt
daily CBC, monitor for bleeding
OCP cessation, pt will need to discuss alternate treatment for menorrhagia with SAND DRIER
Management of May Thurner via vascular surgery
Patient History
History of Present Illness
28y F with PMH significant for Down syndrome, hypothyroidism and morbid obesity who presented to ED 08/25/2023 with LLE pain, swelling and redness. She reports that she felt left groin discomfort Friday that she thought was a pulled muscle from
a performance over the weekend. Her discomfort improved with ICE, Heat, and massage by Friday. However, Friday she awoke with significant swelling and redness in the entire left lower extremity, however, most concentrated in her anterior thigh.
LE US showed Occlusive thrombus extending contiguously from the left common femoral vein through the left popliteal vein. There is also involvement of the visualized proximal left greater saphenous vein. Her CT ab/pelvis showed compression of the
superior aspect of the left common iliac vein between the right common iliac artery in the anterior margin of the spine, findings suggesting May Thurner syndrome. Her CTA chest showed bilateral peripheral pulmonary emboli and no evidence of right
heart strain. She underwent lysis 08/26/23 and returned to the OR today with plan for lysis check, possible suction thrombectomy/mechanical aspiration, possible angioplasty/stent.
She takes OCPs for menorrhagia (heavy bleeding every 6 months). She denies any recent surgery, trauma, air travel, GLP-1 agonist use, prolonged immobility, or restrictive limb devices. She denies personal or family history of thrombosis.
Mother and brother at bedside provided supplemental history
Past-Medical/Surgical History
PMH Down syndrome, hypothyroidism and morbid obesity, seasonal allergies, IBS
surgical history: cholecystectomy, tear duct
Social never smoker, denies etoh or recreational drug use. 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 Lives with mother
Family: denies malignancy
Patient Medication
�Medication �Instructions �Recorded �Confirmed �Last Taken �Type
clindamycin phosphate 1 % topical 1 applic topical HS Skin Issues 08/25/23 08/25/23 08/24/23 History
solution
dicyclomine 10 mg capsule 20 mg PO TID PRN ibs cramping 08/25/23 08/25/23 Unknown History
fluticasone propionate 50 1 spray intranasal DAILY Allergies 08/25/23 08/25/23 08/25/23 History
mcg/actuation nasal
spray,suspension
levonorgestrel 0.15 mg-ethinyl 1 tab PO HS Hormonal Agent 08/25/23 08/25/23 08/24/23 History
estradiol 30 mcg tablets,3 mos
pack(91)
levothyroxine 112 mcg tablet 112 mcg PO DAILY Thyroid 08/25/23 08/25/23 08/25/23 History
loratadine-pseudoephedrine ER 10 1 tab PO DAILY Allergies 08/25/23 08/25/23 08/25/23 History
mg-240 mg tablet,extended
[id number] (Eliseo D-24hr)
multivitamin 1 tab PO DAILY Supplement 08/25/23 08/25/23 08/25/23 History
olopatadine 0.2 % eye drops 1 drp BOTH EYES DAILY Allergies 08/25/23 08/25/23 08/25/23 History
(Pataday Once Daily Relief)
omeprazole 20 mg capsule,delayed 20 mg PO DAILY Gastrointestinal 08/25/23 08/25/23 08/25/23 History
release Issue
polyethylene glycol 3350 17 gram 17 g PO DAILY Constipation 08/25/23 08/25/23 08/25/23 History
oral powder packet (Miralax)
vitamin E 268 mg (400 unit) capsule 268 mg PO DAILY Supplement 08/25/23 08/25/23 08/25/23 History
Active Medications
Generic Name Dose Route Start Last Admin
Trade Name Freq PRN Reason Stop Dose Admin
Acetaminophen 650 mg 08/25/23 20:52
Acetaminophen 325 Mg Tablet PO 09/22/23 20:51
Q4HPRN PRN
Mild Pain / Temp > 101
Heparin Sodium 7,400 units 08/27/23 11:29
Heparin 80 Units/Kg Iv Rebolus IV 09/24/23 11:28
PRN PRN
PTT < OR = 64 seconds
Heparin Sodium 3,700 units 08/27/23 11:30
Heparin 40 Units/Kg Iv Rebolus IV 09/24/23 11:29
PRN PRN
PTT = 64.1 to 72.9 seconds
Sodium Chloride 1,000 mls @ 60 mls/hr 08/26/23 00:30 08/27/23 07:26
Nss IV 1,000 mls
.[id number] FRANCISCO Administration
Sodium Chloride 1,000 mls @ 26 mls/hr 08/26/23 14:15 08/26/23 16:00
Nss INF CATH 1,000 mls
.Q24H FRANCISCO Administration
Heparin Sodium 25,000 units in 250 mls @ 0 mls/hr 08/27/23 11:15 08/27/23 12:49
Heparin 52580 Units/250 Ml IV 250 mls
PER PROTOCOL FRANCISCO Administration
Protocol
Per Protocol
Ketotifen Fumarate 0 drop 08/26/23 08:00 08/27/23 12:31
Ketotifen Fumarate (Ophthalmic Solution) Bottle BOTH EYES 09/23/23 07:59 Not Given
DAILY FRANCISCO
Levothyroxine Sodium 112 mcg 08/26/23 06:00 08/27/23 06:04
Levothyroxine 112 Mcg Tablet PO 09/23/23 05:59 Not Given
DAILY @ 0600 FRANCISCO
Morphine Sulfate 2 mg 08/25/23 20:52 08/27/23 12:33
Morphine 2 Mg/Ml Syringe IV 09/08/23 20:51 2 mg
Q4HPRN PRN Administration
severe pain
Pantoprazole Sodium 40 mg 08/26/23 08:00 08/27/23 07:23
Pantoprazole 40 Mg Delayed Release Tablet PO 09/23/23 07:59 Not Given
DAILY FRANCISCO
Polyethylene Glycol 17 grams 08/26/23 08:00 08/26/23 20:35
Polyethylene Glycol Powder 17 Grams Packet PO 09/23/23 07:59 17 grams
DAILY FRANCISCO Administration
Polyethylene Glycol 17 grams 08/26/23 20:16
Polyethylene Glycol Powder 17 Grams Packet PO 09/23/23 20:15
DAILYPRN PRN
constipation
Simethicone 80 mg 08/27/23 00:15 08/27/23 00:21
Simethicone 80 Mg Chewable Tablet PO 09/24/23 00:14 80 mg
QIDPRN PRN Administration
gas pain
Sodium Chloride 0 flush 08/25/23 21:00
Sodium Chloride 0.9% (Flush) Syringe IV 09/22/23 20:59
PER PROTOCOL FRANCISCO
Tramadol HCl 50 mg 08/25/23 20:52 08/25/23 21:37
Tramadol Hcl 50 Mg Tablet PO 09/22/23 20:51 50 mg
Q6HPRN PRN Administration
moderate pain
Review of Systems
-
Review of systems notable for HPI, otherwise negative
Physical Exam
-
General: Well Developed, No Apparent Distress and Morbidly Obese
HEENT: Moist Mucous Membranes; Negative Jaundice
Cardiology: S1, S2 and No Murmur
Pulmonary: Clear
GI: Soft
Musculoskeletal: Edema, Left Lower Extrem
Extremities: Pulses Present
Neurology: Non Focal
Skin: Warm
Labs
Lab Results
WBC 12.6 10^3/uL (4.8-10.8) H 08/27/23 12:08
RBC 3.73 10^6/uL (4.20-5.40) L 08/27/23 12:08
Hgb Cancelled 08/27/23 21:15
Hct Cancelled 08/27/23 21:15
MCV 95.7 fL (81.0-99.0) 08/27/23 12:08
MCH 33.2 pg (27.0-31.0) H 08/27/23 12:08
MCHC 34.7 g/dL (33.0-37.0) 08/27/23 12:08
RDW 12.6 % (11.5-14.5) 08/27/23 12:08
Plt Count Cancelled 08/27/23 21:15
MPV 10.1 fL (7.4-10.4) 08/27/23 12:08
Abs Immat Gran (auto) 0.1 10^3/uL (0-0.05) H 08/27/23 03:57
Absolute Neuts (auto) 9.2 10^3/uL (1.4-6.5) H 08/27/23 03:57
Absolute Lymphs (auto) 0.8 10^3/uL (1.2-3.4) L 08/27/23 03:57
Absolute Monos (auto) 0.2 10^3/uL (0.1-0.6) 08/27/23 03:57
Absolute Eos (auto) 0.0 10^3/uL (0-0.7) 08/27/23 03:57
Absolute Basos (auto) 0.0 10^3/uL (0-0.2) 08/27/23 03:57
Immature Gran % 0.7 % (0-0.5) H 08/27/23 03:57
Neutrophils % 89.8 % (42.2-75.2) H 08/27/23 03:57
Lymphocytes % 7.6 % (20.5-51.1) L 08/27/23 03:57
Monocytes % 1.8 % (1.7-9.3) 08/27/23 03:57
Eosinophils % 0.0 % (0-6) 08/27/23 03:57
Basophils % 0.1 % (0-2) 08/27/23 03:57
Creatinine 0.7 mg/dL (0.6-1.0) 08/27/23 03:57
Vital Signs
Vital Signs
Temp Pulse Resp BP Pulse Ox
98.7 F 76 15 135/88 97
08/27/23 07:44 08/27/23 12:45 08/27/23 12:45 08/27/23 12:45 08/27/23 12:45

Documented by User: Lexa Collier MD 08/27/23 14:25
Plan
Plan
on heparin gtt
daily CBC, monitor for bleeding
OCP cessation, pt will need to discuss alternate treatment for menorrhagia with SAND DRIER
Management of May Thurner via vascular surgery
Hematology Addendum:
Agree w/ AIRPLANE PATROLLER note and plan as outlined
-s/p lytics - as well as placement of stent left common iliac vein into external iliac vein
-heprin gtt
Will continue to follow with you
--- NOTE | 2023-08-27 13:32 | W.PN.HOSP.TC ---
Today's Communication/Plan
-
monitor vitals
see plan
cw heparin per vascular
monitor hgb
Assessment / Plan
Assessment / Plan
General: mild LLE pain
HEENT: Moist mucous membranes and PERRLA
Respiratory: Clear; No Wheezes, Rales or Rhonchi
Cardiac: S1/S2 and Regular Rhythm; No Murmur
GI: Soft, Non Tender, Non Distended and Normal Bowel Sounds
Musculoskeletal: Other (Extensive edema and erythema of the entire LLE with diffuse tenderness. No fluctuance. No increased warmth.)
Neuro: AO x 3 and Nonfocal/grossly intact
Extensive LLE DVT
- cw IV heparin
- Vascular Surgery following
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
Will eventually need iliac vein stenting
s/p OR 08/25 with vascular for thrombolysis; post OP went to ICU for observation. s/p OR 08/26 for angioplasty. Status post mechanical thrombectomy, balloon angioplasty and placement of self-expanding stent.
CT A/P also showed possible diffusion defect. CT pe consistent with PE. no right heart strain
heme following
Acute PE
monitor
Hypothyroidism
Down Syndrome
- Stable. Continue home T4 supplementation.
Morbid Obesity due to excess calories
- Affects all aspects of care including risk of VTE.
- Encourage healthy diet and increased activity with goal of weight loss.
hx of menorrhagia on OCP
would need alternative method
DVT Prophylaxis: On IV Heparin
Code Status: Full
I spent a total of 53 minutes with the patient or on the floor. More than 50% of this time involved counseling and coordination of care.
Anticipated Discharge: > 48 hours
Subjective/Interval History
-
Date of Service: August 27, 2023
denies pain
Objective Data
-
Labs:
Laboratory Results
08/27/23 08/27/23 08/27/23
03:15 03:57 03:58
WBC 10.3
Hgb Cancelled 12.3
Hct Cancelled 35.7 L
Plt Count Cancelled 153
PT 21.2 H
INR 1.85
APTT 51.4 H
Sodium 136
Potassium 4.3
Chloride 108 H
Carbon Dioxide 19 L
BUN 11
Creatinine 0.7
Glucose 115 H
Calcium 7.7 L
Total Bilirubin 1.0
AST 25
ALT 15
Alkaline Phosphatase 81
08/27/23 08/27/23 08/27/23
09:07 12:08 15:15
WBC 12.6 H
Hgb 12.2 12.4 Cancelled
Hct 34.8 L 35.7 L Cancelled
Plt Count 155 148 Cancelled
PT 20.9 H Cancelled
INR 1.79 Cancelled
APTT 40.3 H > 200.0 H* Cancelled
Sodium
Potassium
Chloride
Carbon Dioxide
BUN
Creatinine
Glucose
Calcium
Total Bilirubin
AST
ALT
Alkaline Phosphatase
08/27/23
21:15
WBC
Hgb Cancelled
Hct Cancelled
Plt Count Cancelled
PT Cancelled
INR Cancelled
APTT Cancelled
Sodium
Potassium
Chloride
Carbon Dioxide
BUN
Creatinine
Glucose
Calcium
Total Bilirubin
AST
ALT
Alkaline Phosphatase
Vital Signs:
Vital Signs
Temp Pulse Resp BP Pulse Ox
98.7 F 76 15 135/88 97
08/27/23 07:44 08/27/23 12:45 08/27/23 12:45 08/27/23 12:45 08/27/23 12:45
I&O
08/26/23 08/27/23 08/28/23
06:59 06:59 06:59
Intake Total 0 / 0 1725 / 1818 399 / 399
Output Total 1650 / 1750 550 / 550
Balance 0 / 0 75 / 68 -151 / -151
[2023-08-27] MEDS: NSS INF CATH (14:04)
[2023-08-27] MEDS: ULTRAM 50 MG PO (15:31)
[2023-08-27] MEDS: COLACE 100 MG PO ×2 (16:28→19:42)
--- NOTE | 2023-08-27 20:00 | PTCARENOTE ---
rec`d pt at 1900 OOB to chair. heparin gtt continued. AAOx3, chatting with mom and brother. SR on monitor. rt and left AC flushed and patent. afebrile. +pulses by hand. RA satting at 95%. no BM. bowel regimen on board. ruelas draining clear yellow
urine. Al bandage wrapped around left leg post vascular sx. c/d/i. no hematoma felt. pt`s mother at bedside. call yin in reach. safe environment maintained.
[2023-08-27 22:22] LABS: APTT 55.4 Sec (23.4-35.0)
[2023-08-27] MEDS: HEPARIN 7400 UNITS IV (22:29)
[2023-08-28] VITALS (17 sets, daily range): BP systolic 92–122; BP diastolic 53–78; PULSE 101–106; O2SAT 95–96; BMI 46.0
--- NOTE | 2023-08-28 | PTCARENOTE ---
pt reassessed. no changes in pt assessment. call yin in reach.
[2023-08-28] MEDS: NSS 1000 IV (03:11)
[2023-08-28] MEDS: HEPARIN 25000 UNITS/250 ML IV (03:19)
--- NOTE | 2023-08-28 04:00 | PTCARENOTE ---
pt reassessed. no changes in pt assessment. call yin in reach.
[2023-08-28 04:28] LABS: % Basophils 0.3 % (0-2); % Monocytes 4.2 % (1.7-9.3); % Neutrophils 78.5 % (42.2-75.2); Absolute Immature Granulocytes 0.4 10^3/uL (0-0.05); Absolute Monocytes 0.6 10^3/uL (0.1-0.6); Absolute Neutrophils 11.4 10^3/uL (1.4-6.5); Hemoglobin 11.3 g/dL (12.0-16.0); Mean Corp Hgb Conc. 34.2 g/dL (33.0-37.0); Mean Corpuscular Volume 93.5 fL (81.0-99.0); Mean Platelet Volume 9.9 fL (7.4-10.4); Nucleated Red Blood Cells % 0 %; Platelet Count 189 10^3/uL (130-400); Red Blood Cell Count 3.53 10^6/uL (4.20-5.40); Red Cell Dist. Width 12.8 % (11.5-14.5); White Blood Cell Count 14.6 10^3/uL (4.8-10.8)
[2023-08-28 04:46] LABS: APTT > 200 Sec (23.4-35.0)
[2023-08-28 04:50] LABS: Blood Urea Nitrogen 13 mg/dl (7-17); Calcium 7.8 mg/dl (8.4-10.2); Carbon Dioxide 20 mmol/L (22-30); Chloride 110 mmol/L (98-107); Estimated Creatinine Clearance 111 ml/min; Glucose 118 mg/dl (70-99); Potassium 4.3 mmol/L (3.5-5.1); Sodium 135 mmol/L (135-145); eGFR > 60.00
[2023-08-28] MEDS: SYNTHROID 112 MCG PO (06:14)
--- NOTE | 2023-08-28 07:27 | W.PN.INTV ---
Addendum entered and electronically signed by Chelsi Hanley DO 08/28/23 13:26:
Transferred to tele, we will sign off at this time
Please call with questions
Original Note:
Today's Communication / Plan
Recommendations
Doing well postop, on room air
Transitioned to Eliquis, tolerating
Encouraged OOB/PT/IS
Discharge planning per team
Assessment
-
Patient is a 28 year old F with PMH significant for Down syndrome, hypothyroidism and morbid obesity who presents to ED complaining of LLE pain, swelling and redness. CT A/P venogram completed and shows iliac vein compression by overlying iliac
artery - consistent with suspected May-Thurner syndrome. She underwent lysis 08/26/23 and transferred to ICU postoperatively for further management.
Extensive iliofemoral and infrainguinal left lower extremity DVT s/p lysis by vasc 08/26/23
s/p Left lower extremity venogram, placement of Cragg iMkki lysis catheter and initiation of venous thrombolysis (5 Fr, 50 cm infusion length) 08/27/23
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
Conditions present VOLUNTEER FIREFIGHTER
Down syndrome
Menorrhagia with irregular cycle on OCPS
Morbid obesity BMI 43
Hypothyroidism
IBS
Seasonal allergies
Plan
Patient is s/p lysis by vascular surgery service, POD #2
Return to OR for catheter directed lysis 08/26
Continue observation following procedure
Follow neurovascular checks per protocol
IV heparin transitioned to Eliquis
Follow BP monitoring and parameters as set by primary team
Cardiac history noted--none
Monitor on telemetry
Pain control per protocol
RASS goal 0
No prior history of pulmonary disease, LEIDY may be seen in Downs pts
Extubated well
CXR reviewed indicating no acute disease/overall low lung volumes
No prior PFTs for review
Encouraged IS
Diet advancement per protocol
Aspiration precautions
GI prophylaxis if indicated for stress ulcer prevention in the critically ill
Creat at baseline, follow UO
Critical I/Os
Void trials
Replete electrolytes as needed
No signs/symptoms suspicious for infectious etiology at this time
She is on periop abx
Follow temperatures/CBC
Hb and platelets postoperatively stable
DVT prophylaxis recommended if not contraindicated based on procedural history -- heparin SQ and mechanical SCDs
Encouraged OOB/PT/OT/ambulation once cleared by surgical team
Discharge planning
Diagnostic Data
Chest X-Ray: 06/28/18- Mild right-sided subsegmental atelectasis versus thickening of the minor fissure.
CT Scan: CTA 08/26/23- 1. Positive for peripheral pulmonary emboli bilaterally. No evidence of right heart strain.
2. Mild bibasilar subsegmental atelectasis, otherwise clear lungs.
AP - There is expansile deep venous thrombosis extending contiguously from the proximal left femoral vein through the left common iliac vein. Compression of the superior aspect of the left common iliac vein between the right common iliac artery in
the anterior margin of the spine, findings suggesting May Thurner syndrome. Although a soft finding, suggestion of a filling defect within a left lower lobe pulmonary artery. If diagnosis of pulmonary embolism would change clinical management, a CT
angiography of the chest could be performed. Left pelvic kidney is present, located anterior to the left psoas muscle. Status post cholecystectomy with no evidence for biliary ductal dilation
LE Duplex- IMPRESSION: Occlusive thrombus extending contiguously from the left common femoral vein through the left popliteal vein. There is also involvement of the visualized proximal left greater saphenous vein. Of note, the left iliac vein is
unable to be visualized, and thrombus could extend into the pelvic veins.
Echo:
PFT's:
Reports and relevant images were personally reviewed.
-----
Critical care time 32 mins -- this includes review of history, physical exam, medications, hemodynamic/ventilator parameters, laboratory data, imaging and discussion with house staff, pharmacy, respiratory therapy, loss prevention agent, and nursing.
Subjective Dataa
Subjective Data
Date of Service:
Date of Service: August 28, 2023
Chief Complaint: Operating Systems Specialist Follow Up
Subjective:
doing well today, sitting in chair
no complaints
tolerating diet
Objective Data
Data Reviewed
Vital Signs / I&O / Oxygen:
Vital Signs
Temp Pulse Resp BP Pulse Ox
97.2 F 78 15 98/66 93
08/28/23 03:19 08/28/23 06:00 08/28/23 06:00 08/28/23 05:00 08/28/23 06:00
Intake and Output
08/27/23 08/28/23 08/29/23
06:59 06:59 06:59
Intake Total 1725 / 1818 1974 / 1974
Output Total 1650 / 1750 2675 / 2675
Balance 75 / 68 -700 / -700
SaO2 93
Physical Exam
General: Comfortable and Other (NAD)
HEENT: Normocephalic, Anicteric and Moist Mucous Membranes
Cardiovascular: S1-S2 and Regular Rhythm
Respiratory: Clear and Non-Labored Respirations
GI: Soft, Non Distended and Non Tender
Neurology: Awake, Alert, Oriented, AO x 3 and No Motor Deficits
Skin: Warm, Dry and Good Color
Labs/Micro/Reports
Lab Data
08/28/23 04:05
08/28/23 04:05
Laboratory Results
08/27/23 08/27/23 08/27/23
09:07 12:08 15:15
PT 20.9 H Cancelled
INR 1.79 Cancelled
APTT 40.3 H > 200.0 H* Cancelled
08/27/23 08/27/23 08/28/23
21:15 22:02 04:05
PT Cancelled
INR Cancelled
APTT Cancelled 55.4 H > 200 H*
Microbiology
08/25/23 16:38 Blood/Venous Blood Culture - Preliminary
No Growth in 48 hours- Final report to follow
--- NOTE | 2023-08-28 07:33 | W.PN.VS ---
Addendum entered and electronically signed by Arvind Fuller MD 08/28/23 16:14:
Seen and examined early this a.m. with MACHINE SET UP [place]. Agree with findings as noted below. No significant abdominal pain. Left leg soft. (Thigh and calf). Plan/as discussed and noted below.
Original Note:
Today's Communication / Plan
-
patient seen and examined at bedside with Dr. Arvind Fuller, below plan reviewed with attending.
Assessment/Plan
-
Assessment: 28 year old female POD# 2 Left lower extremity venogram, placement of Cragg Mikki lysis catheter and initiation of venous thrombolysis (5 Fr, 50 cm infusion length). POD#1 AngioJet mechanical thrombectomy of left common and external
iliac veins with AngioJet Xelante catheter, Balloon angioplasty of left common and external iliac veins with 8 mm angioplasty balloon, IVUS (intravascular ultrasound) assessment left common/external iliac veins and IVC, Placement of self expanding
Wallstent 18 mm x 90 mm left common iliac vein into external iliac vein.
Plan:
Aspirin 81mg PO daily, antiplatelet for stent placement
Ok to transition to OAC of primary team's choosing
This provider will return this afternoon to remove LLE posterior dressing
PT eval and treat
Ok to get OOB and ambulate as tolerated
Would not discharge until tomorrow in order to assess toleration of OAC and ambulation, can downgrade to tele from a vascular surgery standpoint but would prefer private room for patient comfort
Subjective Data
-
Date of Service: August 28, 2023
Patient seen and examined at bedside, offers no complaints. Mother at bedside. Patient tolerating PO diet.
Objective Data
-
Vital Signs
Temp Pulse Resp BP Pulse Ox
97.2 F 78 15 98/66 93
08/28/23 03:19 08/28/23 06:00 08/28/23 06:00 08/28/23 05:00 08/28/23 06:00
Intake and Output
05/22/24 05/23/24 05/24/24
06:59 06:59 06:59
Intake Total 1725 / 1818 1974
Output Total 1650 / 1750 2674 / 267
Balance 75 / 68 -700 / -700
Intake:
Oral fluids 360 / 360
IV fluids (Total) 1725 / 1818 1615 / 1615
Alteplase 60 / 62 6 / 6
HEPARIN 23615 UNITS/250 ML 25, 75 / 80 15 / 15
000 units In 250 ml @ 500 UNITS
/HR 5 mls/hr DAIJA SHEATH .Q24H
[facility] Rx#:[id number]
Nss 1,000 ml @ 26 mls/hr INF 690 / 716 78 / 78
CATH .Q24H [facility] Rx#:[id number]
Nss 1,000 ml @ 60 mls/hr IV . 900 / 960 1320 / 1320
[id number] [facility] Rx#:[id number]
heparin 196 / 196
Output:
Urine, Randhawa 1600 / 1700 2674 / 5
Urine, Voided 50 / 50
Lab Results
08/28/23 04:05
08/28/23 04:05
Calcium 7.8 mg/dl (8.4-10.2) L 08/28/23 04:05
Magnesium 2.1 mg/dl (1.6-2.3) 08/26/23 07:50
Total Bilirubin 1.0 mg/dl (0.2-1.3) 08/27/23 03:57
Direct Bilirubin 0.4 mg/dl (0.0-0.4) 08/27/23 03:57
AST 25 U/L (14-36) 08/27/23 03:57
ALT 15 U/L (0-35) 08/27/23 03:57
Alkaline Phosphatase 81 U/L (38-126) 08/27/23 03:57
Total Protein 6.0 g/dl (6.3-8.2) L 08/27/23 03:57
Albumin 2.9 g/dl (3.5-5.0) L 08/27/23 03:57
Physical Exam
-
NAD, awake and alert
No tachycardia
No dyspnea
ABD rotund, non-tender
LLE with edema, markedly approved from pre-op, shun wrap CDI, all compartments soft
--- NOTE | 2023-08-28 08:10 | PTCARENOTE ---
Received pt awake and alert sitting up in bed. She is very pleasant. Her Mother is at the bedside. Together they were informed of the plan of care regarding plans to ambulate, and transition to an oral anticoagulant. They both verbalized their
understanding. Right IV site with IVF @60ml/hr, left fa with Heparin @ 1200units/hr. +palpable peripheral pulses. LLE warm, red with MAYNOR wrap from foot to groin. Constipation, Miralax and Colace as ordered. Suggested increasing her intake of fruits
and vegetables. Safe environment maintained.
[2023-08-28] MEDS: ZADITOR 1 DROP BOTH EYES (08:17)
[2023-08-28] MEDS: PROTONIX 40 MG PO (08:17)
[2023-08-28] MEDS: LOW STRENGTH ASPIRIN 81 MG PO (08:17)
[2023-08-28] MEDS: MIRALAX 17 GRAMS PO (08:17)
[2023-08-28] MEDS: COLACE 100 MG PO ×2 (08:17→20:28)
--- NOTE | 2023-08-28 09:40 | W.PN.ONC ---
Today's Communication / Plan
-
On heparin gtt convert to apixaban
Daily CBC, monitor for bleeding
OCP cessation, pt will need to discuss alternate treatment for menorrhagia with EXTRUSION PRESS SUPERVISOR
Management of May Thurner via vascular surgery
Impression
Impression
Provoked VTE 2/2 May Thurner and OCPs
Bilateral pulmonary emboli
Acute extensive left lower extremity and iliofemoral DVT s/p mechanical thrombectomy of left common and external iliac veins
May Thurner -Compression of the superior aspect of the left common iliac vein between the right common iliac artery in the anterior margin of the spine s/p stent
menorrhagia
Subjective/Objective
Subjective/Objective
No new complaints accompanied by her mother
Vital Signs:
Vital Signs
Temp Pulse Resp BP Pulse Ox
98.2 F 78 15 98/66 93
08/28/23 08:01 08/28/23 06:00 08/28/23 06:00 08/28/23 05:00 08/28/23 06:00
Awake
Upper extremity improving
Lungs clear
Lab Results:
Laboratory Data
WBC 14.6 10^3/uL (4.8-10.8) H 08/28/23 04:05
Hgb 11.3 g/dL (12.0-16.0) L 08/28/23 04:05
Plt Count 189 10^3/uL (130-400) D 08/28/23 04:05
PT Cancelled 08/27/23 21:15
INR Cancelled 08/27/23 21:15
APTT > 200 Sec (23.4-35.0) H* 08/28/23 04:05
eGFR > 60.00 08/28/23 04:05
[2023-08-28] MEDS: ELIQUIS 10 MG PO ×2 (11:36→20:28)
--- NOTE | 2023-08-28 12:53 | PTCARENOTE ---
LLE with MAYNOR compression wrap intact. Shahnaz written patient information provided to the Pt's mother. I stressed to the pt that she will bleed a little longer if she cuts herself and will require she hold pressure longer, also that she may bruise
easily so be mindful of strenuous activity/dance. She verbalized her understanding. She is also aware her menses may also be heavier. Will continue to provide supportive care.
--- NOTE | 2023-08-28 14:04 | W.PN.HOSP.TC ---
Today's Communication/Plan
-
Monitor vital signs
see plan
PT/OT
Start Eliquis and DC heparin drip
transfer out of ICU
Discussed with mother at bedside
Assessment / Plan
Assessment / Plan
General: mild LLE pain
HEENT: Moist mucous membranes and PERRLA
Respiratory: Clear; No Wheezes, Rales or Rhonchi
Cardiac: S1/S2 and Regular Rhythm; No Murmur
GI: Soft, Non Tender, Non Distended and Normal Bowel Sounds
Musculoskeletal: Other (Extensive edema and erythema of the entire LLE with diffuse tenderness. No fluctuance. No increased warmth.)
Neuro: AO x 3 and Nonfocal/grossly intact
Extensive LLE DVT
- Vascular Surgery following
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
s/p OR 08/25 with vascular for thrombolysis; post OP went to ICU for observation. s/p OR 08/26 for angioplasty. Status post mechanical thrombectomy, balloon angioplasty and placement of self-expanding stent.
CT A/P also showed possible diffusion defect. CT pe consistent with PE. no right heart strain
heme following. ok to transition to eliquis. Eliquis is covered. Eliquis started 08/27. off heparin
Acute PE
monitor
Continue
Constipation
Laxatives
mag citrate
Hypothyroidism
Down Syndrome
- Stable. Continue home T4 supplementation.
Morbid Obesity due to excess calories
- Affects all aspects of care including risk of VTE.
- Encourage healthy diet and increased activity with goal of weight loss.
hx of menorrhagia on OCP
would need alternative method
Patient to follow-up outpatient
DVT Prophylaxis: eliquis
Code Status: Full
PT/OT
I spent a total of 52 minutes with the patient or on the floor. More than 50% of this time involved counseling and coordination of care.
Anticipated Discharge: > 48 hours
Subjective/Interval History
-
Date of Service: August 28, 2023
denies nausea
Objective Data
-
Labs:
Laboratory Results
08/28/23 08/28/23
04:05 13:30
WBC 14.6 H
Hgb 11.3 L
Hct 33.0 L
Plt Count 189 D
APTT > 200 H* Pending
Sodium 135
Potassium 4.3
Chloride 110 H
Carbon Dioxide 20 L
BUN 13
Creatinine 0.7
Glucose 118 H
Calcium 7.8 L
Vital Signs:
Vital Signs
Temp Pulse Resp BP Pulse Ox
98.2 F 86 22 108/53 96
08/28/23 08:01 08/28/23 12:45 08/28/23 10:00 08/28/23 11:41 08/28/23 10:00
I&O
08/27/23 08/28/23 08/29/23
06:59 06:59 06:59
Intake Total 1725 / 1818 1974 / 2034 660 / 660
Output Total 1650 / 1750 2675 / 2675 650 / 650
Balance 75 / 68 -700 / -640
--- NOTE | 2023-08-28 14:23 | TRANSFER ---
Report called to Rosibel AHMADI. Pt to be transferred via W/C and Tele. Mother remained W/pt.
--- NOTE | 2023-08-28 14:57 | CM ---
CM following re: discharge planning.
Discussed in Rounds, reviewed pt's chart, met with pt and pt's mother and pt's brother at bedside.
Pt is POD# 2 Left lower extremity venogram and POD#1 AngioJet mechanical thrombectomy of left common and external iliac veins with AngioJet Xelante catheter. Per Vascular surgery, pt most likely will be ready to be discharged tomorrow. Both pt and
her mother and brother are aware. IMM reviewed placed on chart, pt has a copy.
PT and OT evaluations noted - outpatient PT/OT recommended.
Pt will need a script for outpatient PT and OT.
D/C plan: home with outpatient PT/OT and family support. Mother to transport at discharge.
CM will follow with discharge plan updates as hospitalization progresses
[2023-08-28] MEDS: CITROMA 300 ML PO (15:29)
--- NOTE | 2023-08-28 16:10 | PTCARENOTE ---
1530: Patient arrived to 2S. L leg with shun wrap clean dry and intact. B/L neurovascular assessment completed. SpO2 greater than 92%. Bed in lowest position and call yin within reach. Family at bedside.
[2023-08-28 17:27] LABS: APTT 25.7 Sec (23.4-35.0)
[2023-08-28] MEDS: ULTRAM 50 MG PO (21:54)
[2023-08-29 03:00] VITALS: BP 117/65
[2023-08-29 04:03] VITALS: BP 117/65
[2023-08-29] MEDS: SYNTHROID 112 MCG PO (05:03)
[2023-08-29 05:22] LABS: Hematocrit 35.7 % (37.0-47.0); Hemoglobin 12.1 g/dL (12.0-16.0); Mean Corp Hgb Conc. 33.9 g/dL (33.0-37.0); Mean Corpuscular Hgb 31.8 pg (27.0-31.0); Mean Corpuscular Volume 93.9 fL (81.0-99.0); Mean Platelet Volume 9.9 fL (7.4-10.4); Platelet Count 196 10^3/uL (130-400); Red Cell Dist. Width 13.1 % (11.5-14.5); White Blood Cell Count 8.4 10^3/uL (4.8-10.8)
[2023-08-29 05:45] LABS: Blood Urea Nitrogen 15 mg/dl (7-17); Calcium 7.9 mg/dl (8.4-10.2); Carbon Dioxide 25 mmol/L (22-30); Chloride 107 mmol/L (98-107); Estimated Creatinine Clearance 98 ml/min; Glucose 97 mg/dl (70-99); Potassium 4.3 mmol/L (3.5-5.1); Sodium 136 mmol/L (135-145); eGFR > 60.00
[2023-08-29 05:50] VITALS: BMI 45.4
[2023-08-29 07:00] VITALS: BP 115/67
[2023-08-29 07:38] LABS: Atypical Lymphocytes 5 %; Eosinophils 3 % (0-6); Lymphocytes 41 % (20-51); Metamyelocytes 2 % (-); Monocytes 3 % (2-9); Myelocytes 1 % (-); Normal RBC Morphology Yes; Platelets Checked Yes; Segmented Neutrophils 42 % (42-75); Total Cells Counted 100
[2023-08-29] MEDS: TYLENOL 650 MG PO (10:05)
[2023-08-29] MEDS: LOW STRENGTH ASPIRIN 81 MG PO (10:05)
[2023-08-29] MEDS: PROTONIX 40 MG PO (10:05)
[2023-08-29] MEDS: COLACE PO (10:06)
[2023-08-29] MEDS: MIRALAX PO (10:06)
[2023-08-29] MEDS: ELIQUIS 10 MG PO (10:06)
[2023-08-29] MEDS: ZADITOR BOTH EYES (10:16)
[2023-08-29 11:01] VITALS: BP 108/64
--- NOTE | 2023-08-29 11:17 | W.PN.HOSP.TC ---
Today's Communication/Plan
-
Monitor vital signs and see plan
Discharge today with outpatient follow-up with hematology and vascular surgery
Hemoglobin stable
Discussed with mother at bedside
Time of discharge 38 minutes
Assessment / Plan
Assessment / Plan
General: mild LLE pain
HEENT: Moist mucous membranes and PERRLA
Respiratory: Clear; No Wheezes, Rales or Rhonchi
Cardiac: S1/S2 and Regular Rhythm; No Murmur
GI: Soft, Non Tender, Non Distended and Normal Bowel Sounds
Musculoskeletal: Left lower extremity Al wrap
Neuro: AO x 3 and Nonfocal/grossly intact
Extensive LLE DVT
- Vascular Surgery following
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
s/p OR 08/25 with vascular for thrombolysis; post OP went to ICU for observation. s/p OR 08/26 for angioplasty. Status post mechanical thrombectomy, balloon angioplasty and placement of self-expanding stent.
CT A/P also showed possible diffusion defect. CT pe consistent with PE. no right heart strain
heme following. ok to transition to eliquis. Eliquis is covered. Eliquis started 08/27. off heparin
Spoke with vascular surgery, okay to discharge from their standpoint. Patient will follow-up with vascular surgery outpatient. Will also have patient follow-up with hematology
Acute PE
monitor
Continue to monitor, on room air
Constipation
Laxatives
mag citrate
Hypothyroidism
Down Syndrome
- Stable. Continue home T4 supplementation.
Morbid Obesity due to excess calories
- Affects all aspects of care including risk of VTE.
- Encourage healthy diet and increased activity with goal of weight loss.
hx of menorrhagia on OCP
would need alternative method
Patient to follow-up outpatient
DVT Prophylaxis: eliquis
Code Status: Full
PT/OT
Anticipated Discharge: Today
Subjective/Interval History
-
Date of Service: August 29, 2023
Minimal pain
Objective Data
-
Labs:
Laboratory Results
08/29/23
04:19
WBC 8.4
Hgb 12.1
Hct 35.7 L
Plt Count 196
Sodium 136
Potassium 4.3
Chloride 107
Carbon Dioxide 25
BUN 15
Creatinine 0.8
Glucose 97
Calcium 7.9 L
Vital Signs:
Vital Signs
Temp Pulse Resp BP Pulse Ox
97.9 F 88 14 108/64 97
08/29/23 11:01 08/29/23 11:01 08/29/23 11:01 08/29/23 11:01 08/29/23 11:01
I&O
08/28/23 08/29/23 08/30/23
06:59 06:59 06:59
Intake Total 1974 1260 / 1260
Output Total 267 / 5 1150 / 1150
Balance -700 / -640 110 / 110
--- NOTE | 2023-08-29 11:31 | W.DCSUMMARY ---
Discharge Summary
Discharge Data
Date of Admission: 08/25/23
Date of Discharge: 08/29/23
-
Pending Results: No
Hospital Course
28-year-old female with past medical history of Down syndrome, hypothyroidism, morbid obesity came to the hospital with left lower extremity swelling and pain known to have extensive left lower extremity DVT. CT scan was done which showed iliac
vein compression consistent with May Thurner syndrome. It was thought that patient DVT was likely secondary to May Thurner syndrome and oral contraceptive use. Patient was seen by vascular surgery and was taken initially for thrombolysis. Patient
then later went for angioplasty with mechanical thrombectomy, balloon angioplasty and placement of self-expanding stent. CT scan was also done which showed acute pulmonary embolism. Patient was initially started on IV heparin which was later
transitioned to Eliquis prior to discharge. Also after the stent placement patient was started on aspirin. Patient was also seen by hematology throughout hospitalization. Once patient symptoms were improving and she was able to ambulate, she was
then discharged home with instructions to follow-up with all her physicians outpatient.
Discharge Plan
-
Patient Disposition: Home with Home Care
Discharge Diagnosis/Procedures: Extensive left lower extremity deep vein thrombosis status post venous thrombolysis, mechanical thrombectomy, balloon angioplasty
Left common iliac vein into external iliac vein stent
May Thurner syndrome
Acute pulmonary embolism
Condition: Fair
Diet: As tolerated
Additional Activity: Do not lifting more then 10lb
Driving Restrictions: Not until seen by your Dr
Activity Restrictions/Additional Instructions:
You have already taken 10 mg Eliquis in the morning. Take another dose of 10 mg in the evening. Starting tomorrow take 10 mg twice daily until 09/03/2023. Starting 09/04/2023 decreased to 5 mg twice daily.
Stand Alone Forms: DC Instr - Vascular OR, Return to Work
Referrals:
India Kennedy PA-C [Specified Professional Personl] - 09/11/23 1:00 pm (Vascular follow up)
Viola Vigil MD [Active] -
Hortencia Sparks MD [Family Provider] - in less than 1 week
Prescriptions:
New
acetaminophen 325 mg Tablet
650 mg PO Q4HPRN PRN (Reason: Mild Pain / Temp > 101) Qty: 0 0RF
tramadol 50 mg Tablet
50 mg PO Q6HPRN PRN (Reason: Severe pain) Qty: 10 0RF
docusate sodium 100 mg Capsule
100 mg PO BID Qty: 0 0RF
aspirin [Children's Aspirin] 81 mg Tablet,Chewable
81 mg PO DAILY Qty: 30 0RF
Eliquis 5 mg Tablet
10 mg PO BID Qty: 60 0RF
Rx Instructions:
Take 10 mg tablet twice daily until 09/03/2023. From 09/04/23 take 5 mg twice daily
Continued
multivitamin Tablet
1 tab PO DAILY
polyethylene glycol 3350 [Miralax] 17 gram Powder In Packet
17 g PO DAILY
AllerClear D-24hr 10-240 mg Tablet Extended Release 24 Hr
1 tab PO DAILY
omeprazole 20 mg capsule,delayed release(DR/EC)
20 mg PO DAILY
fluticasone propionate 50 mcg/actuation [place],Suspension
1 spray INTRANASAL DAILY
dicyclomine 10 mg capsule
20 mg PO TID PRN (Reason: ibs cramping)
vitamin E 268 mg (400 unit) Capsule
268 mg PO DAILY
levothyroxine 112 mcg tablet
112 mcg PO DAILY
clindamycin phosphate 1 % solution
1 applic TOPICAL HS
Patient Comments:
08/25/2023: apply to inside of legs
olopatadine [Pataday Once Daily Relief] 0.2 % Drops
1 drp BOTH EYES DAILY
Discontinued
levonorgestrel-ethinyl estrad 0.15 mg-30 mcg (91) tablets,dose pack,3 month
1 tab PO HS
Discharge Orders:
Discharge Patient (As Directed); Ordered 08/29/23
Ordered By: Landon Nathan
Discharge Date and Time
Discharge Date/Time: 08/29/23 13:14
Print Language: [email or web address]
--- NOTE | 2023-08-29 12:56 | CM ---
met with patient and her family. patient is stable for discharge home today.gave patient a coupon for eliquis to use for her loading dosse of medication.also asked doctor to write a scrit for op pt and ot-eval and treathair to transport patient
home.
== END 2023-08-29 13:14 | disposition home or self-care (01) | DRG 270 ==
LOC: 2 SOUTH 19:54
PROVIDERS: Nurse Practitioner; Nurse Practitioner Acute Care; Nurse Practitioner Family; Surgery Vascular Surgery; ADMITTING PHYSICIAN Hospitalist; ATTENDING PHYSICIAN Internal Medicine; EMERGENCY PHYSICIAN Emergency Medicine; FAMILY PHYSICIAN Student in an Organized Health Care Education/Training Program; OTHER PHYSICIAN Internal Medicine; OTHER PHYSICIAN Internal Medicine Hematology & Oncology; OTHER PHYSICIAN Surgery Vascular Surgery
PROC: 3E03317 Introduction of Other Thrombolytic into Peripheral Vein, Percutaneous Approach (ICD-10-PCS; 2023-08-26)
PROC: B51C1ZZ Fluoroscopy of Left Lower Extremity Veins using Low Osmolar Contrast (ICD-10-PCS; 2023-08-26)
PROC: 06CG3ZZ Extirpation of Matter from Left External Iliac Vein, Percutaneous Approach (ICD-10-PCS; 2023-08-27)
PROC: B54CZZ3 Ultrasonography of Left Lower Extremity Veins, Intravascular (ICD-10-PCS; 2023-08-27)
PROC: B549ZZ3 Ultrasonography of Inferior Vena Cava, Intravascular (ICD-10-PCS; 2023-08-27)
PROC: 067D3DZ Dilation of Left Common Iliac Vein with Intraluminal Device, Percutaneous Approach (ICD-10-PCS; 2023-08-27)
PROC: 06CD3ZZ Extirpation of Matter from Left Common Iliac Vein, Percutaneous Approach (ICD-10-PCS; 2023-08-27)
PROC: 067G3ZZ Dilation of Left External Iliac Vein, Percutaneous Approach (ICD-10-PCS; 2023-08-27)
DX: I82.412 Acute embolism and thrombosis of left femoral vein (principal); I26.99 Other pulmonary embolism without acute cor pulmonale; I87.1 Compression of vein; Z68.42 Body mass index [BMI] 45.0-49.9, adult; E03.9 Hypothyroidism, unspecified; I82.422 Acute embolism and thrombosis of left iliac vein; I82.432 Acute embolism and thrombosis of left popliteal vein; E66.01 Morbid (severe) obesity due to excess calories; Q90.9 Down syndrome, unspecified; N92.0 Excessive and frequent menstruation with regular cycle; K58.9 Irritable bowel syndrome, unspecified; Z79.899 Other long term (current) drug therapy; K21.9 Gastro-esophageal reflux disease without esophagitis
CPT/HCPCS: 36011; 36012; 37187; 37212; 37214; 37238; 37239; 37252; 37253; 71045; 71275; 74177; 75820; 76937; 80048; 80053; 82248; 83605; 83735; 84703; 85014; 85018; 85025; 85027; 85049; 85384; 85610; 85730; 87040; 93005; 93971; 96374; 97116; 97162; 97167; 99285; C1725; C1753; C1757; C1769; C1892; C1894; J2997; Q9967

== ENCOUNTER → 2023-10-07 07:51 | Outpatient (REF) | payer MEDICARE, SELFPAY | LOC: RAD 07:51 | PROVIDERS: ATTENDING PHYSICIAN Physician Assistant; FAMILY PHYSICIAN Student in an Organized Health Care Education/Training Program | DX: I87.1 Compression of vein (principal); I82.412 Acute embolism and thrombosis of left femoral vein | CPT/HCPCS: 93971; 93978 ==

== ENCOUNTER → 2024-04-28 13:50 | Outpatient (REF) | payer MEDICARE, SELFPAY | LOC: RAD 13:50 | PROVIDERS: ATTENDING PHYSICIAN Surgery Vascular Surgery; FAMILY PHYSICIAN Student in an Organized Health Care Education/Training Program | DX: I82.A22 Chronic embolism and thrombosis of left axillary vein (principal) | CPT/HCPCS: 93971; 93978 ==

== ENCOUNTER 2025-01-03 17:39 | Emergency (ER) | payer MEDICARE, SELFPAY ==
[2025-01-03 17:40] VITALS: BP 116/84
--- NOTE | 2025-01-03 18:29 | ED.GENMED ---
History of Present Illness
<Kina Randhawa MD - Last Filed: 01/06/25 05:58>
General
Chief Complaint: Abdominal Symptoms
Source: patient and family
Time Seen by Provider: 01/03/25 18:18
History of Present Illness
History of Present Illness:
29-year-old female presents emergency department with 6 days of abdominal pain has gotten progressively worse. The pain seems worse at the right lower quadrant and is worse with certain positions, no radiation. She has anorexia and slight nausea
but denies vomiting back pain, chest pain, shortness of breath, fever, chills, urinary symptoms, vaginal discharge or bleeding. She has been having normal bowel movements. Patient saw her doctor today and was referred to the emergency department
for further evaluation.
Past History
<Kina Randhawa MD - Last Filed: 01/06/25 05:58>
Past History
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
ED Past Surgical History: Cholecystectomy and Other (Tear duct, vascular)
Social History
Tobacco: Non-smoker
Alcohol: None
Drug: None
Personal: Single
Living: with family
Employment: Student
Family History
Family History: Other (Noncontributory)
Phy Exam
<Kina Randhawa MD - Last Filed: 01/06/25 05:58>
Physical Exam
Physical Exam:
GENERAL: Alert , in no apparent distress
EYE: pupils equal and reactive
NECK: Supple, no significant adenopathy.
ENT: o/p clr, mmm.
CARDIAC: Regular rate and rhythm .
LUNGS: Clear breath sounds bilaterally, no acute respiratory distress, no wheezes/rales/rhonchi
ABDOMEN: Soft, diffuse lower tenderness greatest at the right lower quadrant, no r/g, no cvat
NEUROLOGICAL: Alert and oriented, no focal neuro deficits
SKIN: Warm and dry, skin intact.
MUSCULOSKELETAL: No edema, well perfused.
PSYCH: Normal and appropriate interaction.
Course
<Kina Randhawa MD - Last Filed: 01/06/25 05:58>
Orders/Labs/Results
Orders:
Orders
01/03/25 18:29
CT Abd/Pel (IV only)-DH only Urgent
Comment:
Reason For Exam: lower abd pain, anorexia
0.9% Sodium Chloride 1000 ml [Nss] 1,000 ml IV BOLUS
Ketorolac [Toradol] 15 mg IV NOW STA
01/03/25 18:46
Complete Blood Count/No Diff Urgent
Comprehensive Metabolic Panel Urgent
Lipase Urgent
01/03/25 19:29
Test Result ONCE
01/03/25 19:31
HCG, Urine Qualitative Screen Urgent
Date Specimen was Collected: 01/03/25
Time Specimen was Collected: 19:29
Urinalysis Reflex To Culture Urgent
Date Specimen was Collected: 01/03/25
Time Specimen was Collected: 19:29
Abnormal Lab Results
01/03/25
18:46
WBC 3.4 L 10^3/uL
(4.8-10.8)
MCH 32.1 H pg
(27.0-31.0)
01/03/25 18:46
01/03/25 18:46
Vital Signs
Initial and Last Documented VS:
Initial Vital Signs
Temp Pulse Resp BP Pulse Ox
98.1 F 96 20 116/84 96
01/03/25 17:40 01/03/25 17:40 01/03/25 17:40 01/03/25 17:40 01/03/25 17:40
Last Documented Vital Signs
Temp Pulse Resp BP Pulse Ox
98.1 F 82 16 101/64 96
01/03/25 17:40 01/03/25 20:09 01/03/25 20:09 01/03/25 20:09 01/03/25 20:09
<Charles Adams MD - Last Filed: 01/04/25 02:36>
Orders/Labs/Results
Orders:
Orders
01/03/25 18:29
CT Abd/Pel (IV only)-DH only Urgent
Comment:
Reason For Exam: lower abd pain, anorexia
0.9% Sodium Chloride 1000 ml [Nss] 1,000 ml IV BOLUS
Ketorolac [Toradol] 15 mg IV NOW STA
01/03/25 18:46
Complete Blood Count/No Diff Urgent
Comprehensive Metabolic Panel Urgent
Lipase Urgent
01/03/25 19:29
Test Result ONCE
01/03/25 19:31
HCG, Urine Qualitative Screen Urgent
Date Specimen was Collected: 01/03/25
Time Specimen was Collected: 19:29
Urinalysis Reflex To Culture Urgent
Date Specimen was Collected: 01/03/25
Time Specimen was Collected: 19:29
Abnormal Lab Results
01/03/25
18:46
WBC 3.4 L 10^3/uL
(4.8-10.8)
MCH 32.1 H pg
(27.0-31.0)
01/03/25 18:46
01/03/25 18:46
Vital Signs
Initial and Last Documented VS:
Initial Vital Signs
Temp Pulse Resp BP Pulse Ox
98.1 F 96 20 116/84 96
01/03/25 17:40 01/03/25 17:40 01/03/25 17:40 01/03/25 17:40 01/03/25 17:40
Last Documented Vital Signs
Temp Pulse Resp BP Pulse Ox
98.1 F 82 16 101/64 96
01/03/25 17:40 01/03/25 20:09 01/03/25 20:09 01/03/25 20:09 01/03/25 20:09
<Charles Adams MD - Last Filed: 01/04/25 02:36>
MDM/Problems Addressed
MDM/Problems Addressed:
CT report reviewed and discussed with patient and her mother. Repeat abdominal exam: Soft and nontender. Upon further questioning, patient states that she has had difficult time moving her bowels recently, despite taking MiraLAX daily. As such,
with CT report suggestive of mild constipation with stool burden, will recommend increasing MiraLAX to twice daily x 2 days, along with diet modification and increase fluid intake. In addition, recommended PCP follow-up as an outpatient, with
return precautions provided, i.e. fever/worsening pain/vomiting. Patient's mother expresses understanding at time of discharge. Patient otherwise is afebrile, hemodynamically stable, and appears comfortable, at time of discharge.
<Kina Randhawa MD - Last Filed: 01/06/25 05:58>
*Pulse Oximetry
SaO2: 96
Oxygen Mode of Delivery: Room air
<Charles Adams MD - Last Filed: 01/04/25 02:36>
*Pulse Oximetry
Patient hypoxic: no
*Critical Care Note
Total Time (30-74mins, 75-104mins- exclusive of procedures): Not Applicable
<Kina Randhawa MD - Last Filed: 01/06/25 05:58>
Update Note
Update Note:
Patient presents to the Emergency Department with ____abdominal pain
Number and Complexity of Problems Addressed at the Encounter
� Chronic conditions affecting care:
� Acute Exacerbation and/or Progression of Chronic Illness:
� Differential Diagnosis includes: But not limited to appendicitis, diverticulitis, UTI, constipation, cholecystitis, etc. etc.
Amount and/or Complexity of Data to be Reviewed and Analyzed
� I performed an independent evaluation of and my interpretation is:
EKG:
CT:The appendix is normal.
No acute inflammatory process within the abdomen or pelvis.
No bowel obstruction. Mild colonic fecal burden most pronounced in the ascending colon and transverse colon.
IVC/left common iliac vein stent appears patent.
Trace free fluid in the pelvis, likely physiologic.
Slightly distended extrarenal pelvis, bilaterally, left greater than right. No apparent ureteral dilatation, and no apparent renal or ureteral calculus to indicate obstructive uropathy.
Xrays:
Laboratory Studies:generally unremarkable.
Other:
� Review of other/old records reveals:
� Clinical information was obtained by an independent historian: Mother who is bedside
� Prescriptions/Medications Considered but not given:
� Further testing considered but not performed:
Risk of Complications and/or Morbidity or Mortality of Patient Management
� Social determinants of health affecting care:
� Discussion with other providers (PCP, Hospitalists, Consultants, etc):
� Escalation of care including admission/observation vs risk of discharge considered:[address] pending, s/o dispo as per ct results.
ED Attending Note
<Kina Randhawa MD - Last Filed: 01/06/25 05:58>
-
Portions of this chart may have been created with voice recognition software.� Occasional wrong word or��sound alike� substitutions may have occurred due to the inherent limitations of voice recognition software.
Discharge Plan
Departure
Patient Disposition: Home (Routine Discharge)
Date of Disposition: 01/03/25
Time of Disposition: 22:30
Patient with high blood pressure during this ER visit?: No
Condition: Good
Discharge Problem:
Abdominal pain
Instructions: Abdominal Pain
Prescriptions:
No Action
multivitamin Tablet
1 tab PO DAILY
polyethylene glycol 3350 [Miralax] 17 gram Powder In Packet
17 g PO DAILY
AllerClear D-24hr 10-240 mg Tablet Extended Release 24 Hr
1 tab PO DAILY
omeprazole 20 mg capsule,delayed release(DR/EC)
20 mg PO DAILY
fluticasone propionate 50 mcg/actuation [place],Suspension
1 spray INTRANASAL DAILY
dicyclomine 10 mg capsule
20 mg PO TID PRN (Reason: ibs cramping)
vitamin E 268 mg (400 unit) Capsule
268 mg PO DAILY
levothyroxine 112 mcg tablet
112 mcg PO DAILY
clindamycin phosphate 1 % solution
1 applic TOPICAL HS
Patient Comments:
08/25/2023: apply to inside of legs
olopatadine [Pataday Once Daily Relief] 0.2 % Drops
1 drp BOTH EYES DAILY
acetaminophen 325 mg Tablet
650 mg PO Q4HPRN PRN (Reason: Mild Pain / Temp > 101) Qty: 0 0RF
tramadol 50 mg Tablet
50 mg PO Q6HPRN PRN (Reason: Severe pain) Qty: 10 0RF
docusate sodium 100 mg Capsule
100 mg PO BID Qty: 0 0RF
aspirin [Children's Aspirin] 81 mg Tablet,Chewable
81 mg PO DAILY Qty: 30 0RF
Eliquis 5 mg Tablet
10 mg PO BID Qty: 60 0RF
Rx Instructions:
Take 10 mg tablet twice daily until 09/03/2023. From 09/04/23 take 5 mg twice daily
Referrals:
Hortencia Sparks MD [Family Provider, Internal Medicine]
Activity Restrictions/Additional Instructions:
As discussed, please follow-up with your primary care physician for reevaluation. Please consider return to ED with worsening symptoms, i.e. fever/worsening pain/vomiting.
Interventions
Interventions:
*Risk Screen - Suicide Last Done: 01/03/25 17:40
*General Assessment Last Done: 01/03/25 17:40
*Neglect/Abuse Screening Last Done: 01/03/25 19:27
*ED- Fall Risk Assessment Last Done: 01/03/25 19:27
*ED COVID-19 Vaccine History Last Done: 01/03/25 19:27
*ED Influenza Vaccine History Last Done: 01/03/25 19:27
*Nursing Disposition Last Done: 01/03/25 22:40
OD-Aodvka-Lppzxnveqm Assessment Last Done: 01/03/25 18:37
Discharge Date and Time
Discharge Date/Time: 01/03/25 22:41
Print Language: BULGARIAN
[2025-01-03 18:37] VITALS: BMI 40.6
[2025-01-03] MEDS: NSS 1000 IV (18:39)
[2025-01-03] MEDS: TORADOL 15 MG IV (18:41)
[2025-01-03 18:59] LABS: Hematocrit 43.9 % (37.0-47.0); Hemoglobin 15.3 g/dL (12.0-16.0); Mean Corp Hgb Conc. 34.9 g/dL (33.0-37.0); Mean Corpuscular Volume 92.0 fL (81.0-99.0); Platelet Count 208 10^3/uL (130-400); Red Cell Dist. Width 13.2 % (11.5-14.5)
[2025-01-03 19:14] LABS: ALT (SGPT) 31 U/L (0-35); AST (SGOT) 28 U/L (14-36); Albumin 4.3 g/dl (3.5-5.0); Alkaline Phosphatase 95 U/L (38-126); Blood Urea Nitrogen 10 mg/dl (7-17); Calcium 9.2 mg/dl (8.4-10.2); Carbon Dioxide 26 mmol/L (22-30); Chloride 103 mmol/L (98-107); Estimated Creatinine Clearance 72 ml/min; Glucose 99 mg/dl (70-99); Lipase 68 U/L (23-300); Potassium 4.4 mmol/L (3.5-5.1); Sodium 137 mmol/L (135-145); Total Protein 7.5 g/dl (6.3-8.2); eGFR > 60.00
[2025-01-03 19:37] LABS: Urine Character Clear (Clear)
[2025-01-03 19:39] LABS: HCG, Urine Qualitative Screen Negative
[2025-01-03 20:09] VITALS: BP 101/64
== END 2025-01-03 22:41 | disposition home or self-care (01) ==
LOC: EMR 17:39
PROVIDERS: EMERGENCY PHYSICIAN Emergency Medicine; FAMILY PHYSICIAN Student in an Organized Health Care Education/Training Program
DX: R10.31 Right lower quadrant pain (principal); E03.9 Hypothyroidism, unspecified; K21.9 Gastro-esophageal reflux disease without esophagitis; Q90.9 Down syndrome, unspecified; Q96.9 Turner's syndrome, unspecified
CPT/HCPCS: 99284; 96374; 74177; 80053; 81003; 81025; 83690; 85027; Q9967